=== PATIENT | male | born 1965 | race Caucasian/White ===

== ENCOUNTER 2016-09-20 02:23 | Observation (INO) | payer SELFPAY ==
[~2016-09-20] VITALS: Ht 177.8 cm; Wt 77.0 kg
[~2016-09-20 02:23] MED LIST: INSU100V2 SQ; RANI300T PO
[2016-09-20 02:26] VITALS: BP 135/85; PULSE 89; RESP 18; TEMP 98.9; O2SAT 95
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
[2016-09-20 04:37] LABS: AUTOMATED NEUTROPHIL # 3.2 TH/MM3 (1.8-7.7); BASOPHIL % 0.4 % (0.0-2.0); EOSINOPHIL # 0.3 TH/MM3 (0-0.4); EOSINOPHIL % 4.8 % (0.0-4.0); HEMATOCRIT 39.1 % (39.0-51.0); HEMO FLAGS DIFF FINAL; LYMPH % 36.3 % (9.0-44.0); LYMPHOCYTE # 2.2 TH/MM3 (1.0-4.8); MEAN CELL VOLUME 88.3 FL (80.0-100.0); MEAN CORPUSCULAR HEMOGLOBIN 29.4 PG (27.0-34.0); MEAN CORPUSCULAR HGB CONC 33.3 % (32.0-36.0); MONO % 5.6 % (0.0-8.0); NEUT % 52.9 % (16.0-70.0); PLATELET COUNT 227 TH/MM3 (150-450); RED BLOOD COUNT 4.43 MIL/MM3 (4.50-5.90); RED CELL DISTRIBUTION WIDTH 13.6 % (11.6-17.2); WHITE BLOOD COUNT 6.1 TH/MM3 (4.0-11.0)
[2016-09-20 05:02] LABS: BICARBONATE 28.7 MEQ/L (21.0-32.0); MAGNESIUM 2.1 MG/DL (1.5-2.5); POTASSIUM 3.9 MEQ/L (3.5-5.1)
[2016-09-20] MEDS ORDERED: KETOROLAC TROMETHAMINE 30 MG/ML (IVP) VIAL IV PUSH ONE (05:15)
[2016-09-20 06:07] LABS: BLOOD, URINE NEG (NEG); COMMENT (UR) CULT NOT INDICATED; CULTURE IF INDICATED CULT NOT INDICATED; GLUCOSE,URINE NEG (NEG); KETONE, URINE NEG (NEG); MUCUS URINE FEW /lpf (OCC); NITRITE,URINE NEG (NEG); SQUAMOUS EPITHELIAL CELL URINE <1 /hpf (0-5); URINE COLOR YELLOW (YELLW/STRAW)
--- NOTE | 2016-09-20 06:50 | RADRPT ---
EXAM DATE/TIME: 09/20/2016 06:08 [facility] COMPARISON: CT ABDOMEN & PELVIS W/O CONTRAST, August 31, 2013, 4:56. CT ABDOMEN & PELVIS W/O CONTRAST, September 02, 2014 , 7:53. INDICATIONS : Bilateral flank pain. ORAL CONTRAST: No oral contrast ingested. RADIATION DOSE: 6.93 CTDIvol (mGy) MEDICAL HISTORY : Hypertension. Diabetes. SURGICAL HISTORY : None. ENCOUNTER: Initial ACUITY: 1 week PAIN SCALE: 8/10 LOCATION: Bilateral flank TECHNIQUE: Volumetric scanning of the abdomen and pelvis was performed. Using automated exposure control and ad justment of the mA and/or kV according to patient size, radiation dose was kept as low as reasonably achievable to obtain optimal diagnostic quality images. FINDINGS: LOWER LUNGS: There is a 1 cm nodule at the anterolateral right lung base. LIVER: Homogeneous density without lesion. There is no dilation of the biliary tree. Tiny stone in a contra cted gallbladder.. SPLEEN: Moderately enlarged. PANCREAS: Within normal limits. KIDNEYS: Multiple bilateral nonobstructing kidney stones, largest a 5 mm stone in the anterior midpole collect ing system of the right kidney. No definite ureteral stones, however multiple deep pelvic calcificati ons of varying sizes, felt to be phleboliths. ADRENAL GLANDS: Within normal limits. VASCULAR: There is no aortic aneurysm. BOWEL/MESENTERY: The stomach, small bowel, and colon demonstrate no acute abnormality. Minimal perihepatic fluid. Nodu lar appearance of the mesentery in the right abdomen concerning for carcinomatosis. ABDOMINAL WALL: Within normal limits. RETROPERITONEUM: Enlarged lymph nodes at multiple sites including gastrohepatic ligament, hepatic hilum, portal caval and para-aortic regions. BLADDER: No wall thickening or mass. REPRODUCTIVE: Within normal limits. INGUINAL: There is no lymphadenopathy or hernia. MUSCULOSKELETAL: Within normal limits for patient age. CONCLUSION: Bilateral mild obstructing kidney stones. No definite ureteral stone or hydronephrosis. Splenomegaly with multicompartment lymphadenopathy. Appearance worrisome for chronic leukemia. Small right lung base nodule. Alverto Whitfield MD on September 20, 2016 at 6:36 Board Certified Radiologist. This report was verified electronically.
[2016-09-20 07:02] VITALS: BP 106/61; PULSE 74; RESP 20; O2SAT 97
[2016-09-20] MEDS ORDERED: MORPHINE SULFATE 4 MG/ML INJ IV PUSH ONE (08:15)
[2016-09-20] MEDS ORDERED: ONDANSETRON HCL 4 MG/2 ML VIAL IV PUSH ONE (08:15)
[2016-09-20] MEDS: SODIUM CHLOR 0.9% 1000 ML INJ 1,000 ML IV SCH ×3 (08:41→21:56)
[2016-09-20 08:46] LABS: INDIRECT BILIRUBIN 0.4 MG/DL (0.0-0.8); TOTAL BILIRUBIN ADULT 0.6 MG/DL (0.2-1.0)
--- NOTE | 2016-09-20 09:17 | RADRPT ---
EXAM DATE/TIME: 09/20/2016 08:15 [facility] COMPARISON: No previous studies available for comparison. INDICATIONS : Bilateral leg swelling. MEDICAL HISTORY : Hypertension. Carcinoma, pancreas. Diabetes. Seizures. Anxiety. SURGICAL HISTORY : Tonsillectomy. Left eye plastic surgery. ENCOUNTER: Initial ACUITY: 2 months PAIN SCORE: 2/10 LOCATION: Bilateral Legs. TECHNIQUE: Venous ultrasound of the left and right leg was performed from the inguinal ligament to the proximal calf. Real-time, color Doppler and spectral tracing, compression and augmentation techniques were us ed. FINDINGS: RIGHT LEG: There is normal compressibility of the deep venous system from the inguinal region to the proximal ca lf. No echogenic clot is seen in the lumen of the common femoral, femoral, popliteal, and posterior tibial veins. There is a normal response of the venous system to proximal and distal augmentation an d respiration. LEFT LEG: There is normal compressibility of the deep venous system from the inguinal region to the proximal ca lf. No echogenic clot is seen in the lumen of the common femoral, femoral, popliteal, and posterior tibial veins. There is a normal response of the venous system to proximal and distal augmentation an d respiration. CONCLUSION: No evidence of lower extremity DVT on the right or left. Jim Suarez MD on September 20, 2016 at 9:12 Board Certified Radiologist. This report was verified electronically.
--- NOTE | 2016-09-20 09:36 | PD ---
Physical Exam Date Seen by Provider: Sep 20, 2016 Data Data Last Documented VS Vital Signs Date Time Temp Pulse Resp B/P Pulse Ox O2 Delivery O2 Flow Rate FiO2 09/20/16 08:39 14 09/20/16 07:02 74 106/61 97 Room Air 09/20/16 02:26 98.9 Orders Complete Blood Count With Diff (09/20/16 04:03) Basic Metabolic Panel (Bmp) (09/20/16 04:03) Magnesium (Mg) (09/20/16 04:03) Urinalysis - C+S If Indicated (09/20/16 04:03) B-Type Natriuretic Peptide (09/20/16 04:03) Alcohol (Ethanol) (09/20/16 04:03) Ketorolac Inj (Toradol Inj) (09/20/16 05:15) Ct Abd/Pel W/O Iv Contrast (09/20/16 ) Us Leg Venous Doppler Bilat (09/20/16 ) Hepatic Functional Panel (09/20/16 07:14) Morphine Inj (Morphine Inj) (09/20/16 08:15) Sodium Chlor 0.9% 1000 Ml Inj (Ns 1000 M (09/20/16 08:15) Ondansetron Inj (Zofran Inj) (09/20/16 08:15) Labs Laboratory Tests Test 09/20/16 09/20/16 04:20 05:50 White Blood Count 6.1 TH/MM3 Red Blood Count 4.43 MIL/MM3 Hemoglobin 13.0 GM/DL Hematocrit 39.1 % Mean Corpuscular Volume 88.3 FL Mean Corpuscular Hemoglobin 29.4 PG Mean Corpuscular Hemoglobin 33.3 % Concent Red Cell Distribution Width 13.6 % Platelet Count 227 TH/MM3 Mean Platelet Volume 7.8 FL Neutrophils (%) (Auto) 52.9 % Lymphocytes (%) (Auto) 36.3 % Monocytes (%) (Auto) 5.6 % Eosinophils (%) (Auto) 4.8 % Basophils (%) (Auto) 0.4 % Neutrophils # (Auto) 3.2 TH/MM3 Lymphocytes # (Auto) 2.2 TH/MM3 Monocytes # (Auto) 0.3 TH/MM3 Eosinophils # (Auto) 0.3 TH/MM3 Basophils # (Auto) 0.0 TH/MM3 CBC Comment DIFF FINAL Differential Comment Sodium Level 139 MEQ/L Potassium Level 3.9 MEQ/L Chloride Level 103 MEQ/L Carbon Dioxide Level 28.7 MEQ/L Anion Gap 7 MEQ/L Blood Urea Nitrogen 9 MG/DL Creatinine 0.90 MG/DL Estimat Glomerular Filtration 88 ML/MIN Rate Random Glucose 104 MG/DL Calcium Level 8.7 MG/DL Magnesium Level 2.1 MG/DL Total Bilirubin 0.6 MG/DL Direct Bilirubin 0.2 MG/DL Indirect Bilirubin 0.4 MG/DL Aspartate Amino Transf 96 U/L (AST/SGOT) Alanine Aminotransferase 69 U/L (ALT/SGPT) Alkaline Phosphatase 105 U/L B-Type Natriuretic Peptide 11 PG/ML Total Protein 7.6 GM/DL Albumin 2.7 GM/DL Ethyl Alcohol Level 3 MG/DL Urine Color YELLOW Urine Turbidity CLEAR Urine pH 6.0 Urine Specific [place] 1.018 Urine Protein TRACE mg/dL Urine Glucose (UA) NEG mg/dL Urine Ketones NEG mg/dL Urine Occult Blood NEG Urine Nitrite NEG Urine Bilirubin NEG Urine Urobilinogen 4.0 MG/DL Urine Leukocyte Esterase NEG Urine RBC 1 /hpf Urine WBC 1 /hpf Urine Squamous Epithelial <1 /hpf Cells Urine Mucus FEW /lpf Microscopic Urinalysis Comment CULT NOT INDICATED MDM Medical Record Reviewed: Yes Supervised Visit with JOSE: No Narrative Course patient signed out to be my dr. deshpande, patient pending us of legs and dispo Patient is a 51-year-old male who presents to emergency room with complaints of 3 days of lower leg pain and pedal edema as well as low back pain. Patient had workup which included a CT of the abdomen and pelvis without contrast. It appears that there is concerns for chronic leukemia as there is carcinamotsis in his abdomen. Patient is homeless, is unable to obtain medical treatment and workup for his newly diagnosed possible leukemia. Case is reviewed with case management, plan to this patient overnight as he will require IV fluids and pain medications and consult with oncology. case reviewed with [facility] residents, will obs to Dr. Monterroso Diagnosis Primary Impression: Generalized weakness Additional Impressions: Abnormal CT of liver Pedal edema Admitting Information Admitting Physician Requests: Observation Scripts No Active Prescriptions or Reported Meds Ely Enciso DO Sep 20, 2016 09:36
[2016-09-20] MEDS ORDERED: SODIUM CHLORIDE 0.9% FLUSH 10 ML FLUSH IV FLUSH PRN (10:30)
[2016-09-20] MEDS ORDERED: ONDANSETRON HCL 4 MG/2 ML VIAL IVP PRN (10:30)
[2016-09-20] MEDS ORDERED: NALOXONE HCL 0.4 MG/ML AMP IV PRN (10:30)
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
[2016-09-20] MEDS ORDERED: GLUCAGON 1 MG/ML VIAL OTHER PRN (10:45)
[2016-09-20] MEDS ORDERED: DEXTROSE 50% IN WATER 50 ML VIAL(D50) IV PUSH PRN (10:45)
--- NOTE | 2016-09-20 10:50 | RADRPT ---
EXAM DATE/TIME: 09/20/2016 10:51 [facility] COMPARISON: CHEST SINGLE AP, July 03, 2015, 9:27. INDICATIONS : Difficulty breathing for a few months. Pulmonary nodule per order. MEDICAL HISTORY : Hypertension. Carcinoma, pancreas. Diabetes. Seizures. Anxiety. SURGICAL HISTORY : Tonsillectomy. Left eye plastic surgery. ENCOUNTER: Initial ACUITY: 2 months PAIN SCORE: 0/10 LOCATION: Bilateral chest FINDINGS: Frontal and lateral views of the chest demonstrate a normal-sized cardiac silhouette. There is inters titial prominence bilaterally. No pleural effusion, airspace consolidation, or pneumothorax is identi fied. No pulmonary nodule is visualized. The bones and soft tissues demonstrate no acute finding. The re is an old healed right posterior third rib fracture. CONCLUSION: Chronic interstitial prominence. No acute cardiopulmonary abnormality is identified. Alverto Mejía MD on September 20, 2016 at 10:46 Board Certified Radiologist. This report was verified electronically.
[2016-09-20 11:56] VITALS: BP 106/70
[2016-09-20] MEDS ORDERED: LORazepam 2 MG/ML VIAL IV PRN (12:15)
[2016-09-20] MEDS: ACETAMINOPHEN 325 MG TAB PO PRN ×2 (12:47→20:34)
[2016-09-20] MEDS: TAMSULOSIN HCL 0.4 MG CAP PO SCH (12:47)
[2016-09-20] MEDS: SODIUM CHLORIDE 0.9% FLUSH 10 ML FLUSH IV FLUSH SCH ×2 (12:49→20:36)
[2016-09-20] MEDS: INSULIN ASPART SUPPLEMENTAL SCALE SQ SCH ×3 (12:49→20:15)
[2016-09-20] MEDS ORDERED: HEPARIN SODIUM - SQ 10,000 UNITS/ML VIAL SQ ONE (13:00)
[2016-09-20 15:07] LABS: AMPHETAMINE, URINE NEG (NEG); BARBITURATES, URINE NEG (NEG); COCAINE, URINE POS (NEG)
[2016-09-20 16:00] VITALS: BP 103/72; PULSE 62; RESP 18; TEMP 96; O2SAT 93
[2016-09-20 20:09] VITALS: BP 111/76; PULSE 74; RESP 18; TEMP 97.7; O2SAT 80
[2016-09-21 00:03] VITALS: BP 102/69; PULSE 97; RESP 18; TEMP 98; O2SAT 94
[2016-09-21 04:00] VITALS: BP 119/69; PULSE 66; RESP 18; TEMP 98; O2SAT 93
[2016-09-21] MEDS: INSULIN ASPART SUPPLEMENTAL SCALE SQ SCH ×2 (06:08→11:00)
[2016-09-21 06:56] LABS: AUTOMATED NEUTROPHIL # 2.2 TH/MM3 (1.8-7.7); BASOPHIL % 0.4 % (0.0-2.0); EOSINOPHIL # 0.3 TH/MM3 (0-0.4); EOSINOPHIL % 5.8 % (0.0-4.0); HEMATOCRIT 40.4 % (39.0-51.0); HEMO FLAGS DIFF FINAL; LYMPH % 42.7 % (9.0-44.0); LYMPHOCYTE # 2.1 TH/MM3 (1.0-4.8); MEAN CORPUSCULAR HGB CONC 32.6 % (32.0-36.0); MONO % 5.7 % (0.0-8.0); NEUT % 45.4 % (16.0-70.0); PLATELET COUNT 209 TH/MM3 (150-450); RED BLOOD COUNT 4.54 MIL/MM3 (4.50-5.90); RED CELL DISTRIBUTION WIDTH 13.7 % (11.6-17.2); WHITE BLOOD COUNT 4.9 TH/MM3 (4.0-11.0)
[2016-09-21 07:34] LABS: ANION GAP 6 MEQ/L (5-15); AST (GOT) 114 U/L (15-37); BICARBONATE 28.4 MEQ/L (21.0-32.0); BLOOD UREA NITROGEN 11 MG/DL (7-18); CHLORIDE 104 MEQ/L (98-107); GLOMERULAR FILTRATION RATE 91 ML/MIN (>89); POTASSIUM 4.3 MEQ/L (3.5-5.1); SODIUM (NA) 138 MEQ/L (136-145)
[2016-09-21 07:35] LABS: ALT (GPT) 72 U/L (12-78)
[2016-09-21 07:38] LABS: ALKALINE PHOSPHATASE 105 U/L (45-117); TOTAL BILIRUBIN ADULT 0.4 MG/DL (0.2-1.0)
[2016-09-21 07:46] VITALS: BP 110/68; PULSE 80; RESP 18; TEMP 98.6; O2SAT 96
[2016-09-21] MEDS: TAMSULOSIN HCL 0.4 MG CAP PO SCH (08:56)
[2016-09-21] MEDS: SODIUM CHLORIDE 0.9% FLUSH 10 ML FLUSH IV FLUSH SCH (08:57)
[2016-09-21] MEDS: ACETAMINOPHEN 325 MG TAB PO PRN (08:57)
[2016-09-21] MEDS: SODIUM CHLOR 0.9% 1000 ML INJ 1,000 ML IV SCH (09:57)
[2016-09-21 11:03] LABS: RHEUMATOID FACTOR TRIGGER LESS THAN 10.0 IU/ML (0.0-14.9)
--- NOTE | 2016-09-21 11:43 | MB ---
cc: [facility]INTER DATE OF CONSULTATION: DATE OF : 1965 REASON FOR CONSULTATION: Patient with abnormal findings of abdominal lymphadenopathy and splenomegaly. CHIEF COMPLAINT Abdominal pain lower extremity edema, lower back pain. HISTORY OF PRESENT ILLNESS This is a 51-year-old male who was who has a past medical history of renal calculi and history of Zygomatica maxillary complex, fracture as well as orbital floor blowout several years ago who underwent open reduction and internal fixation. The patient is currently homeless. He has not had a primary care physician followup for many years. He does not have any other reported medical problems. The patient admits to substance abuse and he is actively using cocaine. He presented to the emergency department after he developed lower extremity edema, lower back pain and abdominal pain which is progressively worse over the past 3-4 days. He endorses weight loss over the past month. He also has urinary hesitancy. He has a history of kidney stones. The patient has a history of hepatitis C on admission an abdominal CT scan was obtained. This shows a enlarged lymph node at multiple sites involving the gastrohepatic ligament, hepatic hilum oral cable and para-aortic lesions. His spleen is moderately enlarged but is definitively not at the higher end of enlargement. The patient also had lower extremity ultrasound on admission and there is no evidence of DVT in bilateral lower extremities. The chest x-ray shows chronic interstitial prominence without any acute cardiopulmonary abnormality. LABORATORY FINDINGS: On admission his WBC was 6.1, hemoglobin 13, platelet count 227. Serum chemistries show a sodium of 139, potassium 3.9, chloride 103 and CO2 is 28.7. His total bilirubin is 0.6, AST 96 and ALT 69. The patient does not admitted to drinking alcohol. REVIEW OF SYSTEMS Comprehensive 14-point review of systems was completed which is negative except as described in the HPI. PAST MEDICAL HISTORY History of renal calculi. ? Bipolar disorder History of seizures history of depression polysubstance abuse. PAST SURGICAL HISTORY He has had facial surgery involving the zygomaxillary region. also had a orbital floor blowout. He has had left eye surgery. OUTPATIENT MEDICATIONS None. ALLERGIES PENICILLIN FAMILY HISTORY: Family history was reviewed and noncontributory to this admission. SOCIAL HISTORY This is admitted to smoking two packs per day for 30 years. He states that except to cigarettes per day. He denies any alcohol consumption. He admits to snorting cocaine. He also has been incarcerated in the past. PHYSICAL EXAMINATION VITAL SIGNS: blood pressure is 111/76, pulse is 70's, temperature is 97.7, O2 sats are 94% on room air. IN GENERAL: Thin cachectic appears to have skin damage from chronic sun exposure. HEAD, EYES, EARS, NOSE, AND THROAT: The pupils are equal, round, reactive to light. EOMI. No thrush. No oral lesions. NECK: Neck is supple. CHEST: The chest is clear to auscultation bilaterally. CARDIOVASCULAR SYSTEM: S1-S2 regular rate and rhythm. ABDOMEN: The Abdomen is diffusely tender. No rebound or guarding was not able to appreciate hepatosplenomegaly. EXTREMITIES: Mildly edematous with pulse is bilateral lower extremities. NEUROLOGIC: No focal deficits. PSYCHIATRIC: Mood and affect is appropriate. LYMPHATICS: Lymph node examination did not show any lymphadenopathy. LABORATORY DATA WBC 6.1, hemoglobin 13, platelet count 227, AST 96, ALT 69, albumin is 2.7, creatinine is 0.9. IMAGING STUDIES Was reviewed in the EMR ASSESSMENT/PLAN This is a 51-year-old homeless male with a history of polysubstance abuse who is actively consuming cocaine. Has history of psychiatric issues, renal calculi who presented to the emergency department with acute bilateral lower extremity edema. Back pain and abdominal pain and was found to have abnormal Ct of the abdomen. 1. Nonspecific findings of abdominal lymphadenopathy and moderate splenomegaly. These findings are nonspecific and could be secondary to infectious versus reactive lymphadenopathy due to inflammation. There is also a possibility of lymphoma vs lymphoproliferative or myeloproliferative disorder. However, this patient needs to be worked up for other causes first. He does not have any cytopenias. Infection such as HIV can cause lymphadenopathy. He has a history of hepatitis C. I would recommend obtaining HIV testing and hepatitis profile. Check Hep C viral load. We will check LDH. I would recommend obtaining a CT scan of the chest to evaluate for any additional lymphadenopathy. He can be monitored over time for progression of his lymphadenopathy. I would not recommend obtaining a biopsy at this time 2. History of cocaine abuse and polysubstance abuse. 3. Elevated liver enzymes possibility of underlying alcohol abuse/hx of Hep C. He does have some splenomegaly. The patient states that does not drink alcohol. Thank you for allowing me to participate in the care of this patient. I will continue to follow this patient along. MD KENNETH Howell/nicholas /6:03 AM /10:15 AM DAVID
[2016-09-21 11:50] VITALS: BP 136/83; PULSE 68; RESP 18; TEMP 97.7; O2SAT 96
--- NOTE | 2016-09-21 12:20 | PD.ONC.PN ---
Subjective Subjective Remarks Afebrile overnight. "I'm hungry, when can I eat?" Denies pain. Objective Data Date Time Temp Pulse Resp B/P Pulse Ox O2 Delivery O2 Flow Rate FiO2 09/21/16 11:50 97.7 68 18 136/83 96 09/21/16 07:46 98.6 80 18 110/68 96 09/21/16 04:00 98.0 66 18 119/69 93 09/21/16 00:03 98.0 97 18 102/69 94 09/20/16 20:09 97.7 74 18 111/76 80 09/20/16 16:00 96.0 62 18 103/72 93 Result Diagram: 09/21/16 0615 09/21/1615 Laboratory Results Laboratory Tests Test 09/21/16 09/21/16 06:15 10:16 White Blood Count 4.9 TH/MM3 Red Blood Count 4.54 MIL/MM3 Hemoglobin 13.2 GM/DL Hematocrit 40.4 % Mean Corpuscular Volume 89.0 FL Mean Corpuscular Hemoglobin 29.0 PG Mean Corpuscular Hemoglobin 32.6 % Concent Red Cell Distribution Width 13.7 % Platelet Count 209 TH/MM3 Mean Platelet Volume 8.1 FL Neutrophils (%) (Auto) 45.4 % Lymphocytes (%) (Auto) 42.7 % Monocytes (%) (Auto) 5.7 % Eosinophils (%) (Auto) 5.8 % Basophils (%) (Auto) 0.4 % Neutrophils # (Auto) 2.2 TH/MM3 Lymphocytes # (Auto) 2.1 TH/MM3 Monocytes # (Auto) 0.3 TH/MM3 Eosinophils # (Auto) 0.3 TH/MM3 Basophils # (Auto) 0.0 TH/MM3 CBC Comment DIFF FINAL Differential Comment Sodium Level 138 MEQ/L Potassium Level 4.3 MEQ/L Chloride Level 104 MEQ/L Carbon Dioxide Level 28.4 MEQ/L Anion Gap 6 MEQ/L Blood Urea Nitrogen 11 MG/DL Creatinine 0.88 MG/DL Estimat Glomerular Filtration 91 ML/MIN Rate Random Glucose 83 MG/DL Calcium Level 8.3 MG/DL Total Bilirubin 0.4 MG/DL Aspartate Amino Transf 114 U/L (AST/SGOT) Alanine Aminotransferase 72 U/L (ALT/SGPT) Alkaline Phosphatase 105 U/L Total Protein 7.0 GM/DL Albumin 2.4 GM/DL Erythrocyte Sedimentation Rate 40 mm/hr Lactate Dehydrogenase 152 U/L C-Reactive Protein 0.70 MG/DL Rheumatoid Factor Screen NEGATIVE Rheumatoid Factor Titer IU/ML Administered Medications Medications (Trade) Dose Ordered Sig/Anitha Route PRN Reason Start Time Stop Time Status Last Admin Dose Admin Sodium Chloride (NS 1000 ml Inj) 1,000 ml @ 115 mls/hr [id number] IV 09/20/16 08:15 09/20/16 21:56 Sodium Chloride (NS Flush) 2 ml BID IV FLUSH 09/20/16 10:30 09/20/16 12:49 Acetaminophen (Tylenol) 650 mg Q6H PRN PO TEMP > 101; pain 1-10 09/20/16 10:30 09/21/16 08:57 Tamsulosin HCl (Flomax) 0.4 mg DAILY PO 09/20/16 11:45 09/21/16 08:56 Objective Remarks GENERAL: Middle aged male, lying supine in bed. appears comfortable. SKIN: Warm and dry. HEAD: Normocephalic. EYES: No injection or drainage. NECK: Supple, trachea midline. CARDIOVASCULAR: Regular rate and rhythm RESPIRATORY: Breath sounds equal bilaterally. No accessory muscle use. GASTROINTESTINAL: Abdomen soft, non-tender, nondistended. EXTREMITIES: No cyanosis NEUROLOGICAL: No obvious focal deficit. Awake, alert, and oriented x3. Assessment/Plan Problem List: (1) Lymphadenopathy, abdominal Status: Acute Plan: --Nonspecific findings of abdominal lymphadenopathy and moderate splenomegaly. --differential includes infectious versus reactive lymphadenopathy vs possibility of lymphoma, myeloproliferative disorder. -- HIV and hepatitis profile + hepatitis C --CRP and ESR both elevated --would recommend CT chest to evaluate for any additional lymphadenopathy. will then need serially monitoring over time for progression of his lymphadenopathy. --would not recommend obtaining a biopsy at this time until we have ruled out the other causes of LAD Assessment 51y/o male with abnormal findings of abdominal lymphadenopathy and splenomegaly. Admitted with LE edema, LBP and abdominal pain history of renal calculi and history of Zygomatica maxillary complex, fracture as well as orbital floor blowout several years ago who underwent open reduction and internal fixation. +substance abuse and he is actively using cocaine. h/o hepatitis C Plan 1. await workup 2. recommend CT Chest 3. supportive care Attending Statement The exam, history, and the medical decision-making described in the above note were completed with the assistance of the mid-level provider. I reviewed and agree with the findings presented. I attest that I had a [id number] encounter with the patient on the same day, and personally performed and documented my assessment and findings in the medical record. Inflammatory markers elevated. ESR and CRP Obtain Chest CT to assess for Lymphadenopathy Hep C antibody positive. Check Hep C Viral Load additional inflammatory/autoimmune w/u per primary team Lakeisha Galindo Sep 21, 2016 12:20 Kale Olson MD Sep 21, 2016 22:17
--- NOTE | 2016-09-21 14:00 | HHI.FPPN ---
Subjective Remarks No acute events overnight. Afebrile. Vitals stable. Patients complains this morning of wanting a diet. Denies fevers, CP, SOB, abdominal pain. (Chapo Wilson MD R1) Objective Vitals Vital Signs Date Time Temp Pulse Resp B/P Pulse Ox O2 Delivery O2 Flow Rate FiO2 09/21/16 11:50 97.7 68 18 136/83 96 09/21/16 07:46 98.6 80 18 110/68 96 09/21/16 04:00 98.0 66 18 119/69 93 09/21/16 00:03 98.0 97 18 102/69 94 09/20/16 20:09 97.7 74 18 111/76 80 09/20/16 16:00 96.0 62 18 103/72 93 I/O 09/20/16 09/20/16 09/20/16 09/21/16 09/21/16 09/21/16 07:00 15:00 23:00 07:00 15:00 23:00 Intake Total 610 ml Output Total 300 ml 950 ml 750 ml Balance 310 ml -950 ml -750 ml Intake Oral 360 ml IV Total 250 ml Output Urine Total 300 ml 950 ml 750 ml # Voids 3 2 # Bowel Movements 0 (Chapo Wilson MD R1) Result Diagram: 09/21/16 0615 09/21/16 0615 Objective Remarks GENERAL: NAD, resting comfortably in bed NEURO: AOx3. Normal speech. webbing tacker grossly intact. Motor grossly normal. SKIN: Warm and dry. No rashes or erythema. HEAD: Normocephalic. Atraumatic. EYES: EOMI. No scleral icterus. ENT: No nasal drainage. Moist mucous membranes. NECK: Supple, trachea midline. CARDIOVASCULAR: Regular rate and rhythm without murmurs, rubs, or gallops. Peripheral pulses 2+. RESPIRATORY: Breath sounds clear to auscultation and equal bilaterally, without wheezes, rales, or rhonchi. No accessory muscle use. GASTROINTESTINAL: Abdomen soft, nontender throughout, nondistended, normal BS. No organomegaly or masses appreciated. No rebound tenderness. No guarding. MUSCULOSKELETAL: Normal range of motion. 2+ lower extremity edema up to distal tibia bilaterally. Pedal edema improved from yesterday. PT and DP pulses are 2+ bilaterally. BACK: Nontender without obvious deformity. (Chapo Wilson MD R1) A/P Assessment and Plan Pleasant 51 year old homeless presents with pedal edema and low back pain and found to have findings concerning for chronic leukemia on CT abd/pelvis as well as bilateral mild nonobstructing kidney stones. Discharge Planning Stable for discharge follow CT chest. CM assisting with discharge needs as pt is homeless and needing outpatient f/u with oncology. (Chapo Wilson MD R1) Attending Attestation Patient seen, examined, and discussed with resident team. I agree with assessment and management as documented and discussed with me. Pt denies complaints. He feels hungry. He would like to go home. (Francesca Monterroso MD) Problem List: (1) Abnormal CT of the abdomen Status: Acute Plan: - CT abdomen/pelvis showing bilateral mild nonobstructing kidney stones. No definite ureteral stone or hydronephrosis. Splenomegaly with multi compartment lymphadenopathy. Findings worrisome for chronic leukemia. Small right lung base nodule. - CBC remains within normal limits - Oncology consulted - Recommending CT chest to evaluate for additional lymphadenopathy and pt will need serial monitoring over time to evaluate for progression of lymphadenopathy - Unclear etiology at this time, findings are nonspecific - No biopsy at this time until other causes of LAD are r/o - CM consult; pt is homeless may need assistance for outpatient follow up (2) Bilateral kidney stones Status: Acute Plan: - CT abdomen/pelvis findings of bilateral mild obstructing kidney stones , no definite ureteral stone or hydronephrosis - UA unremarkable - IVF hydration with NS at 115 cc/hr - Flomax 0.4 mg po daily, hold if SBP < 100 or DBP < 60 - Stain urine for calculi (3) Orthopnea Status: Acute Plan: Pt endorses orthopnea; does state about every other night he is able to sleep flat without any issues BNP 11 on admission Continue monitor Consider echocardiogram if pt clinically worsens Last echo in EMR 07/2004 showing EF 55-65% (4) DM (diabetes mellitus) Status: Chronic Plan: Accuchecks ACHS Low-dose ISS (5) Hypertension Status: Chronic Plan: BP WNLs on admission Monitor vitals q4h (6) History of seizure Status: Chronic Plan: Seizure precautions Ativan 2mg IV q10m prn seizures (7) History of substance abuse Status: Chronic Plan: Admits to snorting cocaine recently UDS + for cocaine Denies IV drug use Etoh level 3 (8) Nutrition, metabolism, and development symptoms Status: Acute Plan: Fluids: NS at 115 cc/hr Electrolytes: WNLs, continue to monitor and replete as necessary Nutrition: 1800 ADA DVT ppx: b/l SCDs, add chemical anticoagulation if anticipating longer hospital stay (Chapo Wilson MD R1) Chapo Wilson MD R1 Sep 21, 2016 14:00 Francesca Monterroso MD Sep 21, 2016 17:28
[2016-09-21 15:36] VITALS: BP 138/75; PULSE 83; RESP 20; TEMP 98.1; O2SAT 96
[2016-09-21] MEDS ORDERED: IOHEXOL 350 MG/ML 10 ML VIAL (for RAD DIAG) IV ONE (15:54)
--- NOTE | 2016-09-21 16:29 | HHI.FPPN ---
Addendum to progress note ADDENDUM Reason for addendum: Additonal documentation Additional information The patient decided to leave AMA. The patient was advised to remain hospitalized for further evaluation of his ongoing medical issues. Case management was consulted as the patient is homeless with the attempt to provide him reliable outpatient follow up with the appropriate physicians and it was explained to the patient that he may be able to follow up at the clinic here however the patient reportedly declined to discuss this further. The ED financial counselor was contacted for further assistance financially. The patient was aware of the risks he is placing himself at by leaving AMA. Chapo Wilson MD R1 Sep 21, 2016 16:29
--- NOTE | 2016-09-21 17:06 | RADRPT ---
EXAM DATE/TIME: 09/21/2016 15:45 [facility] COMPARISON: CT ABDOMEN & PELVIS W/O CONTRAST, September 20, 2016, 6:08. INDICATIONS : Evaluate for mass. IV CONTRAST: 70 cc Omnipaque 350 (iohexol) IV RADIATION DOSE: 5.22 CTDIvol (mGy) MEDICAL HISTORY : Seizures. Hypertension. Diabetes mellitus type 2.Pancreastic cancer. SURGICAL HISTORY : None. ENCOUNTER: Initial ACUITY: 1 day PAIN SCALE: 2/10 LOCATION: Bilateral chest TECHNIQUE: Volumetric scanning of the chest was performed. Using automated exposure control and adjustment of t he mA and/or kV according to patient size, radiation dose was kept as low as reasonably achievable to obtain optimal diagnostic quality images. FINDINGS: LUNGS: 8mm nodular density in the inferior right middle lobe abutting the hemidiaphragm on image #46. Mild p osterior bilateral lower lobe atelectasis. PLEURA: There is no pleural thickening or pleural effusion. MEDIASTINUM: Coronary artery calcifications. No enlarged lymph nodes. Thoracic aorta within normal limits. AXILLAE: Within normal limits. No lymphadenopathy. SKELETAL: Within normal limits for patient age. MISCELLANEOUS: Small amount of right upper quadrant ascites. CONCLUSION: 1. 8mm nodular density in the inferior right lower lobe. Too small to characterize and too small to b iopsy. Recommend followup noncontrast chest CT in 6 months. 2. Mild bilateral atelectasis. Jim Suarez MD on September 21, 2016 at 16:57 Board Certified Radiologist. This report was verified electronically.
[2016-09-24 13:49] LABS: ANA SCREEN POS (NEG)
== END 2016-09-21 16:26 | disposition left against medical advice (07) ==
LOC: NEPC 02:23 → NEDA 10:02 → NEPFCDU 12:04
PROVIDERS: ADMIT Family Medicine; ATTEND Family Medicine
DX: R53.1 Weakness (principal); R93.2 Abnormal findings on diagnostic imaging of liver and biliary tract; R74.8 Abnormal levels of other serum enzymes; R60.0 Localized edema; R59.1 Generalized enlarged lymph nodes; I10 Essential (primary) hypertension; E11.9 Type 2 diabetes mellitus without complications; M54.5 Low back pain; B19.20 Unspecified viral hepatitis C without hepatic coma; R56.9 Unspecified convulsions; F14.10 Cocaine abuse, uncomplicated; F17.210 Nicotine dependence, cigarettes, uncomplicated; Z87.442 Personal history of urinary calculi; Z59.0 Homelessness
CPT/HCPCS: 71020; 71260; 74176; 80048; 80053; 80076; 80307; 81001; 83615; 83735; 83880; 85025; 85652; 86038; 86039; 86140; 86430; 86703; 86705; 86803; 87340; 93970; 96361; 96374; 96375; 97161; 99285; G0378; G8987; G8988; J1644; J1885; J2270; J2405; J7030; Q9967

== ENCOUNTER 2016-09-25 09:55 | Observation (INO) | payer SELFPAY ==
[~2016-09-25] VITALS: Ht 175.3 cm; Wt 75.0 kg
[2016-09-25 09:58] VITALS: BP 137/82; PULSE 86; RESP 15; TEMP 98.2; O2SAT 98
[2016-09-25] MEDS: REMOVE OLD PATCH T-DERMAL SCH (10:17)
[2016-09-25] MEDS ORDERED: MORPHINE SULFATE 4 MG/ML INJ IV PUSH ONE (10:30)
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
[2016-09-25 10:37] LABS: AUTOMATED NEUTROPHIL # 3.6 TH/MM3 (1.8-7.7); BASOPHIL % 0.7 % (0.0-2.0); EOSINOPHIL # 0.3 TH/MM3 (0-0.4); EOSINOPHIL % 4.9 % (0.0-4.0); HEMATOCRIT 39.6 % (39.0-51.0); HEMO FLAGS DIFF FINAL; LYMPHOCYTE # 2.5 TH/MM3 (1.0-4.8); MEAN CELL VOLUME 87.2 FL (80.0-100.0); MEAN CORPUSCULAR HEMOGLOBIN 29.7 PG (27.0-34.0); MEAN CORPUSCULAR HGB CONC 34.1 % (32.0-36.0); NEUT % 50.4 % (16.0-70.0); PLATELET COUNT 242 TH/MM3 (150-450); RED BLOOD COUNT 4.55 MIL/MM3 (4.50-5.90); RED CELL DISTRIBUTION WIDTH 13.6 % (11.6-17.2); WHITE BLOOD COUNT 7.1 TH/MM3 (4.0-11.0)
[2016-09-25 10:46] LABS: PROTHROMBIN TIME - PATIENT 10.9 SEC (9.8-11.6)
[2016-09-25 10:55] LABS: ALT (GPT) 72 U/L (12-78); ANION GAP 8 MEQ/L (5-15); AST (GOT) 91 U/L (15-37); BICARBONATE 26.7 MEQ/L (21.0-32.0); BLOOD UREA NITROGEN 10 MG/DL (7-18); CHLORIDE 104 MEQ/L (98-107); GLOMERULAR FILTRATION RATE 72 ML/MIN (>89); POTASSIUM 3.7 MEQ/L (3.5-5.1); SODIUM (NA) 139 MEQ/L (136-145)
[2016-09-25 10:58] LABS: ALKALINE PHOSPHATASE 128 U/L (45-117); TOTAL BILIRUBIN ADULT 0.4 MG/DL (0.2-1.0)
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
[2016-09-25] MEDS ORDERED: ONDANSETRON HCL 4 MG/2 ML VIAL IVP PRN (11:30)
[2016-09-25] MEDS ORDERED: LACTULOSE SYRUP 20 GM/30 ML CUP PO PRN (11:30)
[2016-09-25] MEDS ORDERED: SENNOSIDES 8.6 MG TAB PO PRN (11:30)
[2016-09-25] MEDS ORDERED: NALOXONE HCL 0.4 MG/ML AMP IV PRN (11:30)
[2016-09-25] MEDS ORDERED: DOCUSATE SODIUM 50 MG/SENNA 8.6 MG TAB PO PRN (11:30)
[2016-09-25] MEDS ORDERED: BISACODYL 10 MG SUPP RECTAL PRN (11:30)
[2016-09-25] MEDS ORDERED: SODIUM CHLORIDE 0.9% FLUSH 10 ML FLUSH IV FLUSH PRN (11:30)
[2016-09-25] MEDS ORDERED: MAGNESIUM HYDROXIDE SUSP 30 ML CUP PO PRN (11:30)
[2016-09-25 11:40] VITALS: BP 126/58; PULSE 84; RESP 17; TEMP 98; O2SAT 99
[2016-09-25] MEDS: SODIUM CHLORIDE 0.9% FLUSH 10 ML FLUSH IV FLUSH SCH ×2 (11:50→20:45)
[2016-09-25 11:59] VITALS: BP_SYST 114; BP_SYST 128; BP_SYST 134; BP_DIAS 68; BP_DIAS 77; BP_DIAS 84; RESP 17; RESP 18
[2016-09-25] MEDS ORDERED: NICOTINE 14 MG/24 HR PATCH T-DERMAL SCH (14:00)
[2016-09-25] MEDS: NICOTINE 21 MG/24 HR PATCH T-DERMAL SCH (14:44)
--- NOTE | 2016-09-25 14:53 | RADRPT ---
EXAM DATE/TIME: 09/25/2016 13:11 [place] COMPARISON: No previous studies available for comparison. INDICATIONS : General weakness. MEDICAL HISTORY : Diabetes mellitus type 2. Leukemia. SURGICAL HISTORY : Tonsillectomy. Left orbital surgery. ENCOUNTER: Subsequent ACUITY: 1 day PAIN SCORE: 0/10 LOCATION: head. TECHNIQUE: Multiplanar, multisequence MRI of the brain was performed without contrast. FINDINGS: CEREBRUM: The ventricles are normal for age. No evidence of midline shift, mass lesion, hemorrhage or acute in farction. No extraaxial fluid collections are seen. The pituitary gland and suprasellar cistern are normal in configuration. WHITE MATTER: No significant signal abnormalities are seen in the white matter. POSTERIOR FOSSA: The cerebellum and brainstem are intact. The 4th ventricle is midline. The cerebellopontine angle is unremarkable. The cerebellar tonsils are normal in position. DIFFUSION IMAGING: No focal areas of restricted diffusion are seen. No evidence of acute infarction. EXTRACRANIAL: The visualized portions of the orbits and paranasal sinuses are unremarkable. CONCLUSION: Negative noncontrast MRI of the brain. Agustin Mendoza MD on September 25, 2016 at 14:50 Board Certified Radiologist. This report was verified electronically.
--- NOTE | 2016-09-25 15:32 | HHI.FPPN ---
Subjective Remarks Patient seen and examined, discussed with the medicine team. This is a 51-year-old [place] who was in the process of a workup for leukemia but he was uncomfortable with the plan and left AMA over the weekend. He was seen by hematology/oncology and a workup was begun. He reports a history of bipolar disorders seizure disorder diabetes and anxiety and he is also hepatitis C antibody positive. He reports having a seizure this morning, when he was incontinent of bowel and bladder and bit his lip. He reports significant weight loss, fatigue and night sweats. Please see history and physical examination for this admission for additional past, family, social history and review of systems at the time of admission. He is a [id number] history smoker and uses cocaine daily. History of being incarcerated for 27 years in the past. When I see him today, he reports a ravenous appetite, he would like double portions of his meals because he does not feel he is going to get enough food. He also requested his pain medications be scheduled so that he can stay ahead of his discomfort. Objective Vitals Vital Signs Date Time Temp Pulse Resp B/P Pulse Ox O2 Delivery O2 Flow Rate FiO2 09/25/16 11:59 89 17 128/77 91 17 134/84 85 18 114/68 09/25/16 11:40 98.0 84 17 126/58 99 Room Air 09/25/16 10:30 17 09/25/16 10:09 18 Room Air 09/25/16 09:58 98.2 86 15 137/82 98 Result Diagram: 09/25/16 1024 09/25/16 1024 Other Results Laboratory Tests Test 09/25/16 10:24 Eosinophils (%) (Auto) 4.9 % Activated Partial 31.0 SEC Thromboplast Time Estimat Glomerular Filtration 72 ML/MIN Rate Random Glucose 112 MG/DL Aspartate Amino Transf 91 U/L (AST/SGOT) Alkaline Phosphatase 128 U/L Albumin 2.9 GM/DL Imaging Last Impressions Brain MRI 09/25/16 0000 Signed Impressions: Service Date/Time: Sunday, September 25, 2016 13:11 - CONCLUSION: Negative noncontrast MRI of the brain. Agustin Mendoza MD Objective Remarks O. CONSTITUTIONAL/GEN: normally nourished, in NAD. EYES: conjunctiva normal, PERRLA, EOMI. ENT: Mouth and pharynx normal. NECK: thyroid midline, supple LUNGS: clear A-P, respiratory effort is normal. CARDIOVASCULAR: RR without murmur or gallop. GI/ABD: soft without masses, without organomegaly. NEURO: No focal deficits. SKIN: color very stephens, no rashes noted. HEME/LYMPH: no bruising, petechia or significant adenopathy MUSC: back is normal in appearance. Extremities are normal in appearance with the exception of pedal edema. PSYCH/MENTAL STATUS: Alert and oriented x 3. A/P Assessment and Plan Mr. Oropeza is a 51 year old M who presents with pedal edema and low back pain and found to have findings concerning for chronic leukemia on previous CT abd/ pelvis as well as bilateral mild nonobstructing kidney stones. Attending Attestation Patient seen and examined. Case reviewed and discussed with the resident team. Agree with plan of care as discussed with me and documented in the resident note. Problem List: (1) Nutrition, metabolism, and development symptoms Status: Acute (2) History of seizure Status: Chronic (3) Abnormal CT of the abdomen Status: Acute (4) History of substance abuse Status: Chronic (5) Bilateral kidney stones Status: Acute Neelam Bryant MD Sep 25, 2016 15:32
[2016-09-25 17:29] VITALS: BP 120/66; PULSE 77; RESP 18; TEMP 98.5; O2SAT 97
[2016-09-25] MEDS ORDERED: cloNIDine HCL 0.1 MG TAB PO PRN (18:45)
[2016-09-25] MEDS ORDERED: LORazepam 2 MG/ML VIAL IV PUSH PRN (18:45)
[2016-09-25] MEDS ORDERED: GLUCAGON 1 MG/ML VIAL OTHER PRN (18:45)
[2016-09-25] MEDS ORDERED: DEXTROSE 50% IN WATER 50 ML VIAL(D50) IV PRN (18:45)
[2016-09-25 19:27] VITALS: BP 136/75; PULSE 82; RESP 18; TEMP 98; O2SAT 96
[2016-09-25 20:21] VITALS: O2SAT 96
[2016-09-25] MEDS: TAMSULOSIN HCL 0.4 MG CAP PO SCH (20:45)
[2016-09-25] MEDS: INSULIN ASPART SUPPLEMENTAL SCALE SQ SCH (20:46)
[2016-09-25] MEDS: MORPHINE SULFATE 4 MG/ML INJ IV PUSH PRN (20:46)
[2016-09-25] MEDS ORDERED: REMOVE OLD PATCH T-DERMAL SCH (21:00)
--- NOTE | 2016-09-25 21:29 | MG ---
cc: NOLAN GONZALES Lab No: [id number] Date: 09/25/16 Age: Sex: M Race: TECHNIQUE 17 channel EEG. DESCRIPTION The background rhythm reveals a symmetrical alpha rhythm, frequency 8-9 Hz, amplitude is 20-30 microvolts. There is some muscle artifact present. Some beta activity is seen. No lateralizing features identified and no epileptiform features identified. Photic stimulation was done in a stepwise fashion with a normal driving response. INTERPRETATION Normal EEG. MD SHANITA Colon/YUSUF /9:10 PM /9:25 PM
[2016-09-26] VITALS (8 sets, daily range): BP systolic 118–130; BP diastolic 60–77; PULSE 66–86; RESP 18–20; TEMP 96.9–98.5; O2SAT 93–97
[2016-09-26] MEDS: MORPHINE SULFATE 4 MG/ML INJ IV PUSH PRN ×5 (04:41→23:10)
[2016-09-26] MEDS: TAMSULOSIN HCL 0.4 MG CAP PO SCH (10:16)
[2016-09-26] MEDS: NICOTINE 21 MG/24 HR PATCH T-DERMAL SCH (10:17)
[2016-09-26] MEDS: SODIUM CHLORIDE 0.9% FLUSH 10 ML FLUSH IV FLUSH SCH ×2 (10:17→20:53)
[2016-09-26] MEDS: INSULIN ASPART SUPPLEMENTAL SCALE SQ SCH ×3 (11:00→21:00)
[2016-09-26 13:34] LABS: AUTOMATED NEUTROPHIL # 3.1 TH/MM3 (1.8-7.7); BASOPHIL % 0.6 % (0.0-2.0); EOSINOPHIL # 0.2 TH/MM3 (0-0.4); EOSINOPHIL % 3.6 % (0.0-4.0); HEMATOCRIT 41.3 % (39.0-51.0); HEMO FLAGS DIFF FINAL; LYMPH % 35.2 % (9.0-44.0); MEAN CELL VOLUME 88.3 FL (80.0-100.0); MEAN CORPUSCULAR HEMOGLOBIN 29.7 PG (27.0-34.0); MEAN CORPUSCULAR HGB CONC 33.7 % (32.0-36.0); MONO % 5.7 % (0.0-8.0); NEUT % 54.9 % (16.0-70.0); PLATELET COUNT 249 TH/MM3 (150-450); RED BLOOD COUNT 4.68 MIL/MM3 (4.50-5.90); RED CELL DISTRIBUTION WIDTH 13.8 % (11.6-17.2); WHITE BLOOD COUNT 5.7 TH/MM3 (4.0-11.0)
[2016-09-26 13:58] LABS: BICARBONATE 32.8 MEQ/L (21.0-32.0); POTASSIUM 4.6 MEQ/L (3.5-5.1)
--- NOTE | 2016-09-26 14:24 | HHI.FPPN ---
Subjective Remarks Patient seen and examined this morning. No acute events overnight with VS WNL. He states that the LE "burning" pain has improved with his pain medications and is currently controlled. He still has mild ABD pain, but again is controlled currently with his medication. He has no other complaints and denies any fevers , chills, SOB, chest pain, NVD, or calf tenderness. (Jose Cruz Mtz MD R1) Objective Vitals Vital Signs Date Time Temp Pulse Resp B/P Pulse Ox O2 Delivery O2 Flow Rate FiO2 09/26/16 12:00 98.5 86 19 122/60 97 09/26/16 10:30 18 09/26/16 07:50 97.8 76 19 129/70 96 09/26/16 07:41 93 21 09/26/16 04:31 96.9 86 20 126/72 95 09/26/16 00:57 97.6 75 18 130/74 96 09/25/16 20:21 96 09/25/16 19:27 98.0 82 18 136/75 96 09/25/16 17:29 98.5 77 18 120/66 97 (Jose Cruz Mtz MD R1) Result Diagram: 09/26/16 1313 09/26/16 1313 Objective Remarks O. CONSTITUTIONAL/GEN: normally nourished, in NAD. EYES: conjunctiva normal, PERRLA, EOMI. GENERAL: 51 y/o M in NAD, resting comfortably in bed SKIN: Warm and dry. No rashes or erythema. Suntanned. Healing ulceration from a burn on L palmar aspect of the hand. HEENT: AT, NC with EOMI. No LAD or JVD appreciated. No rhinorrhea. CARDIOVASCULAR: RRR with 2+ systolic murmur over the aortic area. Peripheral pulses 2+. Capillary refill <2 seconds. RESPIRATORY: CTAB with no CRW. No increased WOB. GASTROINTESTINAL: Abdomen soft, nontender with +BS. No organomegaly or masses appreciated. No rebound tenderness. No guarding. MUSCULOSKELETAL: Normal range of motion. 5/5 strength throughout. 2+ lower extremity edema up to distal tibia bilaterally. Marked pedal edema. Moderate TTP of bilateral feet. PT and DP pulses are 2+ bilaterally. BACK: Nontender without obvious deformity. No CVA tenderness. NEURO: AOx3. Normal speech. vat operator grossly intact. Motor grossly normal. (Jose Cruz Mtz MD R1) A/P Assessment and Plan Mr. Oropeza is a 51 year old M who presents with pedal edema and low back pain and found to have findings concerning for chronic leukemia on previous CT abd/ pelvis as well as bilateral mild nonobstructing kidney stones. (Jose Cruz Mtz MD R1) Attending Attestation Patient seen and examined. Case reviewed and discussed with the resident team. Agree with plan of care as discussed with me and documented in the resident note. (Neelam Bryant MD) Problem List: (1) Abnormal CT of the abdomen Status: Acute Plan: Patient presenting with lower back pain and LE edema found to have imaging suggestive of possible neoplastic process of unknown etiology. - CT abdomen/pelvis 09/20: Image showing bilateral mild nonobstructing kidney stones. No definite ureteral stone or hydronephrosis. Splenomegaly with multi compartment lymphadenopathy. Findings worrisome for chronic leukemia. Small right lung base nodule. - Brain MRI 09/25: Negative noncontrast MRI of the brain. - LE US 09/20: No evidence of the lower extremity DVT on R or L Labs on over last 2 admissions: - CBC remains within normal limits - TB quantiferon test: pending - ESR 09/20: 40 - CRP 09/20: 0.7 - LDH 09/20: 152 - JOSS 09/20: Positive - JOSS titer, pattern, and interpretation: Pending - RF 09/20: Negative - Oncology consulted - Recommending CT chest to evaluate for additional lymphadenopathy and pt will need serial monitoring over time to evaluate for progression of lymphadenopathy - CM consult; pt is homeless may need assistance for outpatient follow up (2) Orthopnea Status: Acute Plan: Patient with symptoms of orthopnea of unknown etiology. - Repeat Echo: pending -Orthostatic vitals: WNL - BNP 11 on admission 09/20 - Last echo in EMR 07/2004 showing EF 55-65% - Continue to monitor (3) Bilateral kidney stones Status: Acute Plan: Patient with history of renal stones found to have BL nonobstructing stones on imaging at previous admission. - CT abdomen/pelvis 09/20: Findings of bilateral mild obstructing kidney stones, no definite ureteral stone or hydronephrosis - UA unremarkable on 09/20 - Repeat UA: Pending - Flomax 0.4 mg po daily, hold if SBP < 100 or DBP < 60 - Stain urine for calculi (4) History of seizure Status: Chronic Plan: Patient with Hx of seizure disorder. He describes episode at admission concerning for possible seizure. - EEG: Pending - Seizure precautions - Ativan 1mg IV q15m prn seizures (5) DM (diabetes mellitus) Status: Chronic Plan: Patient with Hx of DM - Accuchecks and Low-dose ISS per protocol (6) Hypertension Status: Chronic Plan: Patient with Hx of HTN - BP WNLs on admission - Monitor vitals q4h - Clonidine 0.1mg Q6H prn for BP >180/100 (7) History of substance abuse Status: Chronic Plan: Patient with history of IVD abuse - Admits to snorting cocaine daily - UDS + for cocaine on 09/20 - Repeat UDS pending - Denies IV drug use -HIV: Negative -Hep B: negative - Nicotine patch daily (8) Hepatitis C antibody positive in blood Status: Acute Plan: Patient found to have positive Hepatitis C antibody on previous admission. -Hepatitis C antibody: positive -Hepatitis C viral load and genotype: pending (9) Nutrition, metabolism, and development symptoms Status: Acute Plan: Fluids: Tolerating PO fluids Electrolytes: WNLs, continue to monitor and replete as necessary Nutrition: Regular diet as tolerated DVT ppx: BL SCDs, add chemical anticoagulation if anticipating longer hospital stay Prophylaxis: Tylenol prn for fever, Tylenol/Morphine prn for pain, Zofran prn for N/V, Constipation regimen (Jose Cruz Mtz MD R1) Jose Cruz Mtz MD R1 Sep 26, 2016 14:24 Neelam Bryant MD Sep 26, 2016 15:51
--- NOTE | 2016-09-26 14:56 | ECHRPT ---
Indication: Shortness of breath CONCLUSIONS The left ventricular systolic function is normal with an estimated ejection fraction of 60%. Mild thickening of the aortic valve leaflets. Mildly calcified aortic anulus. BP: / HR: Rhythm: Sinus MEASUREMENTS (Male / Female) Normal Values Technical Quality:Fair 2D ECHO LV Diastolic Diameter PLAX 4.3 cm 4.2 - 5.9 / 3.9 - 5.3 cm LV Systolic Diameter PLAX 3.4 cm IVS Diastolic Thickness 0.8 cm 0.6 - 1.0 / 0.6 - 0.9 cm LVPW Diastolic Thickness 0.9 cm 0.6 - 1.0 / 0.6 - 0.9 cm LV Relative Wall Thickness 0.4 RV Internal Dim ED PLAX 2.0 cm LA Systolic Diameter LX 3.6 cm 3.0 - 4.0 / 2.7 - 3.8 cm M-MODE AV Cusp Separation MM 2.0 cm DOPPLER AV Peak Velocity 205.0 cm/s AV Peak Gradient 16.8 mmHg LVOT Peak Velocity 154.0 cm/s LVOT Peak Gradient 9.5 mmHg Mitral E Point Velocity 66.1 cm/s Mitral A Point Velocity 89.8 cm/s Mitral E to A Ratio 0.7 TR Peak Velocity 231.0 cm/s TR Peak Gradient 21.3 mmHg FINDINGS Left Ventricle Normal left ventricular size and wall thickness. The left ventricular systolic function is normal with an estimated ejection fraction of 60%. Left ventricular diastolic function parameters are normal. Right Ventricle Normal right ventricular size and systolic function. Left Atrium The left atrial size is normal. Right Atrium The right atrial size is normal. Atrial Septum Normal atrial septal thickness without atrial level shunting by limited color doppler interrogation. Aorta The aortic root and proximal ascending aorta are normal in size on limited imaging. Mitral Valve Structurally normal mitral valve. No mitral valve stenosis or regurgitation. Aortic Valve Mild thickening of the aortic valve leaflets. Mildly calcified aortic anulus. Tricuspid Valve Structurally normal tricuspid valve. No tricuspid valve stenosis or regurgitation. Vessels The inferior vena cava is normal in size. Pericardium No pericardial effusion. Regina Marsh MD, FACC Edited by: [employer] CV Silver Designer (Electronically Signed) Final Date:26 September 2016 14:55 Amended: 27 September 2016 13:27 DAVID
[2016-09-26] MEDS: ACETAMINOPHEN 325 MG TAB PO PRN ×2 (20:00→20:55)
[2016-09-26] MEDS: REMOVE OLD PATCH T-DERMAL SCH (21:00)
[2016-09-27] VITALS (7 sets, daily range): BP systolic 124–144; BP diastolic 72–78; PULSE 66–85; RESP 18–20; TEMP 96.8–98.4; O2SAT 94–99
--- NOTE | 2016-09-27 00:36 | PD.ONC.PN ---
Subjective Subjective Remarks patient know to oncology service left [facility] before presents with abdominal pain CT abdomen with non-specific lymphadenopathy Objective Data Date Time Temp Pulse Resp B/P Pulse Ox O2 Delivery O2 Flow Rate FiO2 09/26/16 19:58 96 21 09/26/16 15:55 98.4 86 18 123/77 95 09/26/16 15:00 17 09/26/16 12:00 98.5 86 19 122/60 97 09/26/16 07:50 97.8 76 19 129/70 96 09/26/16 07:41 93 21 09/26/16 04:31 96.9 86 20 126/72 95 09/26/16 00:57 97.6 75 18 130/74 96 Result Diagram: 09/26/16 1313 09/26/16 1313 Laboratory Results Laboratory Tests Test 09/26/16 13:13 White Blood Count 5.7 TH/MM3 Red Blood Count 4.68 MIL/MM3 Hemoglobin 13.9 GM/DL Hematocrit 41.3 % Mean Corpuscular Volume 88.3 FL Mean Corpuscular Hemoglobin 29.7 PG Mean Corpuscular Hemoglobin 33.7 % Concent Red Cell Distribution Width 13.8 % Platelet Count 249 TH/MM3 Mean Platelet Volume 8.1 FL Neutrophils (%) (Auto) 54.9 % Lymphocytes (%) (Auto) 35.2 % Monocytes (%) (Auto) 5.7 % Eosinophils (%) (Auto) 3.6 % Basophils (%) (Auto) 0.6 % Neutrophils # (Auto) 3.1 TH/MM3 Lymphocytes # (Auto) 2.0 TH/MM3 Monocytes # (Auto) 0.3 TH/MM3 Eosinophils # (Auto) 0.2 TH/MM3 Basophils # (Auto) 0.0 TH/MM3 CBC Comment DIFF FINAL Differential Comment Sodium Level 138 MEQ/L Potassium Level 4.6 MEQ/L Chloride Level 101 MEQ/L Carbon Dioxide Level 32.8 MEQ/L Anion Gap 4 MEQ/L Blood Urea Nitrogen 13 MG/DL Creatinine 0.91 MG/DL Estimat Glomerular Filtration 87 ML/MIN Rate Random Glucose 89 MG/DL Calcium Level 8.7 MG/DL Administered Medications Medications (Trade) Dose Ordered Sig/Anitha Route PRN Reason Start Time Stop Time Status Last Admin Dose Admin Sodium Chloride (NS Flush) 2 ml BID IV FLUSH 09/25/16 11:30 09/26/16 20:53 Nicotine (Habitrol 21 Mg Patch.24 Hr) 1 patch DAILY T-DERMAL 09/25/16 14:15 09/26/16 10:17 Miscellaneous Information 1 HS T-DERMAL 09/25/16 21:00 09/26/16 21:00 Acetaminophen (Tylenol) 650 mg Q6HR PRN PO PAIN SCALE 6 TO 10 09/25/16 14:15 09/26/16 20:00 Morphine Sulfate (Morphine Inj) 2 mg Q4HR PRN IV PUSH BREAKTHROUGH PAIN 09/25/16 14:15 09/26/16 23:10 Tamsulosin HCl (Flomax) 0.4 mg DAILY PO 09/25/16 18:45 09/26/16 10:16 Objective Remarks GENERAL: cachectic/thin, sun burnt SKIN: Warm and dry. HEAD: Normocephalic. EYES: No scleral icterus. No injection or drainage. NECK: Supple, trachea midline. No JVD or lymphadenopathy. LYMPHATIC: No adenopathy. CARDIOVASCULAR: Regular rate and rhythm without murmurs. RESPIRATORY: Breath sounds equal bilaterally. No accessory muscle use. GASTROINTESTINAL: Abdomen soft, non-tender, nondistended. EXTREMITIES: No cyanosis, or edema. MUSCULOSKELETAL: Adequate muscle tone. NEUROLOGICAL: No obvious focal deficit. Awake, alert, and oriented x3. PSYCHIATRIC: Appropriate mood and affect; insight and judgment normal. Assessment/Plan Problem List: (1) Lymphadenopathy, abdominal Status: Acute (2) Abnormal CT of the abdomen Status: Acute (3) History of substance abuse Status: Chronic (4) Hepatitis C antibody positive in blood Status: Acute Assessment Assessment/Plan Problem List: (1) Lymphadenopathy, abdominal Status: Acute Plan: --Nonspecific findings of abdominal lymphadenopathy and moderate splenomegaly. --differential includes infectious versus reactive lymphadenopathy vs. auto- immune vs possibility of lymphoma/lymphoproliferative myeloproliferative disorder. -- HIV negative and hepatitis profile + hepatitis C --CRP and ESR both elevated -- CT chest 8mm lung nodule--non-specific --would not recommend obtaining a biopsy at this time until we have ruled out the other causes of LAD Assessment 51y/o male with abnormal findings of abdominal lymphadenopathy and splenomegaly. Admitted with LE edema, LBP and abdominal pain history of renal calculi and history of Zygomatica maxillary complex, fracture as well as orbital floor blowout several years ago who underwent open reduction and internal fixation. +substance abuse and he is actively using cocaine. h/o hepatitis C Plan 1. ID and auto-immune w/u ongoing. JOSS is positive and also Hep C positive. Viral load pending. 2. Likelihood of lymphoma/leukemia is low considering no cytopenias and LDH is normal. 3. Biopsy of the abdominal Lymph node will be the last resort since it would require laparoscopic vs open abdominal biopsy d/w Kale Llamas MD Sep 27, 2016 00:36
[2016-09-27] MEDS: ACETAMINOPHEN 325 MG TAB PO PRN ×2 (03:20→23:12)
[2016-09-27] MEDS: MORPHINE SULFATE 4 MG/ML INJ IV PUSH PRN ×4 (04:14→20:23)
[2016-09-27] MEDS: INSULIN ASPART SUPPLEMENTAL SCALE SQ SCH ×4 (06:15→20:22)
[2016-09-27] MEDS: NICOTINE 21 MG/24 HR PATCH T-DERMAL SCH (09:42)
[2016-09-27] MEDS: SODIUM CHLORIDE 0.9% FLUSH 10 ML FLUSH IV FLUSH SCH ×2 (09:43→20:23)
[2016-09-27] MEDS: TAMSULOSIN HCL 0.4 MG CAP PO SCH (09:43)
--- NOTE | 2016-09-27 16:56 | PD.ONC.PN ---
Subjective Subjective Remarks Afebrile overnight. "My back pain is getting worse, I feel like I am about to pass this kidney stone " He just got something for pain and is requesting to sleep. Objective Data Date Time Temp Pulse Resp B/P Pulse Ox O2 Delivery O2 Flow Rate FiO2 09/27/16 16:22 17 09/27/16 15:38 98.0 85 18 144/76 94 09/27/16 12:00 97.5 81 20 134/74 95 09/27/16 08:38 96 09/27/16 08:00 98.0 81 18 127/73 95 09/27/16 03:58 98.4 77 18 125/73 99 09/27/16 00:00 98.0 74 18 124/72 98 09/26/16 20:00 98.4 66 18 118/67 97 09/26/16 19:58 96 21 Result Diagram: 09/26/16 1313 09/26/16 1313 Administered Medications Medications (Trade) Dose Ordered Sig/Anitha Route PRN Reason Start Time Stop Time Status Last Admin Dose Admin Sodium Chloride (NS Flush) 2 ml BID IV FLUSH 09/25/16 11:30 09/27/16 09:43 Nicotine (Habitrol 21 Mg Patch.24 Hr) 1 patch DAILY T-DERMAL 09/25/16 14:15 09/27/16 09:42 Miscellaneous Information 1 HS T-DERMAL 09/25/16 21:00 09/26/16 21:00 Acetaminophen (Tylenol) 650 mg Q6HR PRN PO PAIN SCALE 6 TO 10 09/25/16 14:15 09/27/16 03:20 Morphine Sulfate (Morphine Inj) 2 mg Q4HR PRN IV PUSH BREAKTHROUGH PAIN 09/25/16 14:15 09/27/16 15:52 Tamsulosin HCl (Flomax) 0.4 mg DAILY PO 09/25/16 18:45 09/27/16 09:43 Objective Remarks GENERAL: Disheveled middle aged male, lying in bed in no distress. SKIN: Warm and dry. HEAD: Normocephalic. EYES: No injection or drainage. NECK: Supple, trachea midline. CARDIOVASCULAR: Regular rate and rhythm without murmurs. RESPIRATORY: Breath sounds equal bilaterally. No accessory muscle use. GASTROINTESTINAL: Abdomen protuberant but soft, nondistended. Mildly tender. EXTREMITIES: No cyanosis. Mild RLE edema. NEUROLOGICAL: No obvious focal deficit. Awake, alert, and oriented x3. Assessment/Plan Problem List: (1) Lymphadenopathy, abdominal Status: Acute (2) Hepatitis C antibody positive in blood Status: Acute Assessment 51y/o male with abnormal findings of abdominal lymphadenopathy and splenomegaly. Admitted with LE edema, LBP and abdominal pain, history of renal calculi and history of Zygomatica maxillary complex, fracture as well as orbital floor blowout several years ago who underwent open reduction and internal fixation. +substance abuse and he is actively using cocaine. h/o hepatitis C Plan 1. Hep C, TB workup pending. 2. Will recheck LDH in am. Likelihood of lymphoma/leukemia is low considering no cytopenias and LDH is normal. 3. Hold off on biopsy of lymphadenopathy for now. 4. Will obtain US of RLE as pt has some swelling. Attending Statement The exam, history, and the medical decision-making described in the above note were completed with the assistance of the mid-level provider. I reviewed and agree with the findings presented. I attest that I had a [id number] encounter with the patient on the same day, and personally performed and documented my assessment and findings in the medical record Annabelle Silva Sep 27, 2016 16:56 Kale Olson MD Sep 27, 2016 23:37
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
[2016-09-27] MEDS: REMOVE OLD PATCH T-DERMAL SCH (20:23)
--- NOTE | 2016-09-27 21:18 | RADRPT ---
EXAM DATE/TIME: 09/27/2016 20:34 [facility] COMPARISON: No previous studies available for comparison. INDICATIONS : Right leg swelling. MEDICAL HISTORY : Hypertension. Carcinoma, pancreas. Diabetes. Seizures. Anxiety. SURGICAL HISTORY : Tonsillectomy. Left eye plastic surgery. ENCOUNTER: Subsequent ACUITY: 1 week PAIN SCORE: 0/10 LOCATION: Right leg. TECHNIQUE: Venous ultrasound of the leg was performed from the inguinal ligament to the proximal calf. Real-triston e, color Doppler and spectral tracing, compression and augmentation techniques were used. FINDINGS: There is normal compressibility of the deep venous system from the inguinal region to the proximal ca lf. No echogenic clot is seen in the lumen of the common femoral, femoral, popliteal, and posterior tibial veins. There is a normal response of the venous system to proximal and distal augmentation an d respiration. CONCLUSION: Normal examination. Alverto Whitfield MD on September 27, 2016 at 21:15 Board Certified Radiologist. This report was verified electronically.
[2016-09-28 00:20] VITALS: BP 129/76; PULSE 98; RESP 20; TEMP 97.5; O2SAT 95
[2016-09-28] MEDS: MORPHINE SULFATE 4 MG/ML INJ IV PUSH PRN ×3 (00:26→14:19)
[2016-09-28 04:42] LABS: ALT (GPT) 67 U/L (12-78); ANION GAP 7 MEQ/L (5-15); AST (GOT) 95 U/L (15-37); BICARBONATE 27.9 MEQ/L (21.0-32.0); BLOOD UREA NITROGEN 13 MG/DL (7-18); CHLORIDE 101 MEQ/L (98-107); GLOMERULAR FILTRATION RATE 89 ML/MIN (>89); POTASSIUM 4.2 MEQ/L (3.5-5.1); SODIUM (NA) 136 MEQ/L (136-145)
[2016-09-28 04:44] LABS: ALKALINE PHOSPHATASE 112 U/L (45-117); LDH SERUM 166 U/L (87-241); TOTAL BILIRUBIN ADULT 0.4 MG/DL (0.2-1.0)
[2016-09-28 05:32] VITALS: BP 127/74; PULSE 82; RESP 18; TEMP 97.9; O2SAT 93
[2016-09-28] MEDS: INSULIN ASPART SUPPLEMENTAL SCALE SQ SCH ×2 (06:37→12:14)
[2016-09-28 08:06] VITALS: BP 95/60; PULSE 68; RESP 18; TEMP 97.8; O2SAT 96
[2016-09-28] MEDS ORDERED: ALBUTEROL SULFATE 90 MCG/ACT HFA 8 GM INHALER INH PRN (09:15)
[2016-09-28 09:51] LABS: HCV RNA PCR IU/ML 1890000 IU/mL (()); HCV RNA PCR LOGIU/ML 6.28 (())
[2016-09-28] MEDS: TAMSULOSIN HCL 0.4 MG CAP PO SCH (10:14)
[2016-09-28] MEDS: SODIUM CHLORIDE 0.9% FLUSH 10 ML FLUSH IV FLUSH SCH (10:14)
[2016-09-28] MEDS: NICOTINE 21 MG/24 HR PATCH T-DERMAL SCH (10:15)
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
[2016-09-28 14:31] VITALS: BP 127/78; PULSE 96; RESP 18; TEMP 97.3; O2SAT 98
[2016-09-28 15:10] VITALS: BP 126/73; PULSE 95; RESP 18; TEMP 98.2; O2SAT 93
--- NOTE | 2016-09-28 15:17 | HHI.DCPOC ---
Discharge Care Plan Diagnosis: (1) Lymphadenopathy, abdominal (2) Hepatitis C antibody positive in blood Goals to Promote Your Health * To prevent worsening of your condition and complications * To maintain your health at the optimal level Directions to Meet Your Goals Take your medications as prescribed Follow your dietary instruction Follow activity as directed Keep your appointments as scheduled Take your immunizations and boosters as scheduled If your symptoms worsen call your PCP, if no PCP go to Urgent Care Center or Emergency Room Smoking is Dangerous to Your Health. Avoid second hand smoke Call the 24-hour hour crisis hotline for domestic abuse at Sebastian Mcmanus MD R2 Sep 28, 2016 3:17 pm
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
[2016-09-28 19:57] LABS: MITOGEN MINUS NIL RESULT >10.00 IU/mL (()); NIL RESULT 0.04 IU/mL (()); QUANTIFERON TB GOLD RESULT Negative (Negative)
== END 2016-09-28 16:37 | disposition home or self-care (01) ==
LOC: NEPE 09:55 → NEDA 11:11 → NEPFCDU 12:30
PROVIDERS: ADMIT Family Medicine; ATTEND Family Medicine
DX: R59.1 Generalized enlarged lymph nodes (principal); R60.0 Localized edema; R06.01 Orthopnea; N20.0 Calculus of kidney; B19.20 Unspecified viral hepatitis C without hepatic coma; G40.909 Epilepsy, unspecified, not intractable, without status epilepticus; R16.1 Splenomegaly, not elsewhere classified; E11.9 Type 2 diabetes mellitus without complications; I10 Essential (primary) hypertension; F31.9 Bipolar disorder, unspecified; F41.9 Anxiety disorder, unspecified; F17.200 Nicotine dependence, unspecified, uncomplicated; R63.4 Abnormal weight loss; Z68.24 Body mass index [BMI] 24.0-24.9, adult; Z66 Do not resuscitate; Z59.0 Homelessness; Z88.0 Allergy status to penicillin; Z88.8 Allergy status to other drugs, medicaments and biological substances; Z91.018 Allergy to other foods
CPT/HCPCS: 70551; 80048; 80053; 82948; 83615; 85025; 85610; 85730; 86480; 87522; 87902; 93306; 93971; 95819; 96374; 96376; 97116; 97161; 99285; G0378; G8987; G8988; J2270

== ENCOUNTER 2016-10-07 06:06 | Emergency (ER) | payer SELFPAY ==
[~2016-10-07] VITALS: Ht 175.3 cm; Wt 75.0 kg
[2016-10-07 06:07] VITALS: BP 128/73; PULSE 91; RESP 16; TEMP 98.5; O2SAT 97
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
[2016-10-07] MEDS ORDERED: NAPROXEN 500 MG TAB PO ONE (06:30)
== END 2016-10-07 06:47 | disposition home or self-care (01) ==
LOC: NEPE 06:06
DX: R53.1 Weakness (principal); R60.9 Edema, unspecified; B19.20 Unspecified viral hepatitis C without hepatic coma; R59.1 Generalized enlarged lymph nodes; R53.83 Other fatigue; F31.9 Bipolar disorder, unspecified; F41.9 Anxiety disorder, unspecified; I10 Essential (primary) hypertension; R73.03 Prediabetes
CPT/HCPCS: 99282

== ENCOUNTER 2016-12-06 10:11 | Emergency (ER) | payer SELFPAY ==
[~2016-12-06] VITALS: Ht 175.3 cm; Wt 73.0 kg
[2016-12-06 10:26] VITALS: BP 117/65; PULSE 59; RESP 16; O2SAT 96
[2016-12-06 10:29] VITALS: BP 117/65; PULSE 61; RESP 16; TEMP 97.6; O2SAT 95
[2016-12-06] MEDS ORDERED: SODIUM CHLOR 0.9% 1000 ML INJ 1,000 ML IV ONE (11:30)
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
[2016-12-06 11:52] VITALS: O2SAT 98
[2016-12-06 11:54] LABS: AUTOMATED NEUTROPHIL # 3.9 TH/MM3 (1.8-7.7); BASOPHIL # 0.1 TH/MM3 (0-0.2); EOSINOPHIL # 0.2 TH/MM3 (0-0.4); EOSINOPHIL % 2.2 % (0.0-4.0); HEMATOCRIT 45.2 % (39.0-51.0); LYMPH % 39.1 % (9.0-44.0); MEAN CELL VOLUME 91.3 FL (80.0-100.0); MEAN CORPUSCULAR HEMOGLOBIN 30.2 PG (27.0-34.0); MEAN CORPUSCULAR HGB CONC 33.1 % (32.0-36.0); MONO % 6.9 % (0.0-8.0); NEUT % 50.8 % (16.0-70.0); PLATELET COUNT 269 TH/MM3 (150-450); RED BLOOD COUNT 4.95 MIL/MM3 (4.50-5.90); WHITE BLOOD COUNT 7.6 TH/MM3 (4.0-11.0)
[2016-12-06 11:55] LABS: HEMO FLAGS AUTO DIFF
[2016-12-06 12:06] LABS: APTT (PATIENT) 28.3 SEC (24.3-30.1); PROTHROMBIN TIME - PATIENT 11.6 SEC (9.8-11.6)
[2016-12-06 12:10] LABS: ALT (GPT) 59 U/L (12-78)
[2016-12-06 12:22] LABS: ALKALINE PHOSPHATASE 80 U/L (45-117); ANION GAP 8 MEQ/L (5-15); BICARBONATE 23.8 MEQ/L (21.0-32.0); BLOOD UREA NITROGEN 15 MG/DL (7-18); CHLORIDE 103 MEQ/L (98-107); GLOMERULAR FILTRATION RATE 78 ML/MIN (>89); SODIUM (NA) 135 MEQ/L (136-145); TOTAL BILIRUBIN ADULT 0.5 MG/DL (0.2-1.0)
[2016-12-06 12:23] LABS: AST (GOT) 75 U/L (15-37); CREATINE KINASE 53 U/L (39-308); POTASSIUM 3.7 MEQ/L (3.5-5.1)
[2016-12-06 12:41] LABS: BANDS 1 % (0-6); EOSINOPHILS 1 % (0-4); MYELOCYTES 1 % (0-0); NEUTROPHIL # MANUAL DIFF 3.6 TH/MM3 (1.8-7.7); POLYS (SEG NEUTROPHILS) 46 % (16-70); WBC DIFF SAMPLE 100
--- NOTE | 2016-12-06 12:41 | RADRPT ---
EXAM DATE/TIME: 12/06/2016 12:09 [facility] COMPARISON: CHEST SINGLE AP, July 03, 2015, 9:27. INDICATIONS : Shortness of breath. MEDICAL HISTORY : Diabetes mellitus type II. Leukemia. SURGICAL HISTORY : None. ENCOUNTER: Initial ACUITY: 1 day PAIN SCORE: 0/10 LOCATION: Bilateral chest FINDINGS: The heart is mildly prominent. The pulmonary vascular pattern is normal. The lungs are clear. Dege nerative changes and scoliosis of the thoracic spine are noted. CONCLUSION: 1. Mild cardiomegaly. 2. No acute focal pulmonary infiltrate or pulmonary vascular congestion. 3. Degenerative changes and scoliosis of the thoracic spine. Evan Kumari MD on December 06, 2016 at 12:33 Board Certified Radiologist. This report was verified electronically.
[2016-12-06 12:42] LABS: PLATELET ESTIMATE SMEAR NORMAL (NORMAL); PLATELET MORPHOLOGY NORMAL (NORMAL); SCAN/DIFF FINAL DIFF MANUAL
[2016-12-06 12:45] LABS: BACTERIA, URINE OCC /hpf; BLOOD, URINE NEG (NEG); COMMENT (UR) CULTURE INDICATED; CULTURE IF INDICATED CULTURE INDICATED; GLUCOSE,URINE NEG (NEG); HYALINE CAST, URINE 3 /lpf (RARE); KETONE, URINE NEG (NEG); MUCUS URINE MOD /lpf (OCC); NITRITE,URINE NEG (NEG); PH, URINE 5.5 (5.0-8.5); URINE COLOR YELLOW (YELLW/STRAW)
--- NOTE | 2016-12-06 14:04 | RADRPT ---
EXAM DATE/TIME: 12/06/2016 13:42 [facility] COMPARISON: No previous studies available for comparison. INDICATIONS : Syncope and dizziness RADIATION DOSE: 56.35 CTDIvol (mGy) MEDICAL HISTORY : Seizures. Hypertension. Diabetes mellitus type 2. SURGICAL HISTORY : None. ENCOUNTER: Initial ACUITY: 1 day PAIN SCALE: 0/10 LOCATION: cranial TECHNIQUE: Multiple contiguous axial images were obtained of the head. Using automated exposure control and adj ustment of the mA and/or kV according to patient size, radiation dose was kept as low as reasonably a chievable to obtain optimal diagnostic quality images. DICOM format image data is available electro nically for review and comparison. FINDINGS: CEREBRUM: The ventricles are normal for age. No evidence of midline shift, mass lesion, hemorrhage or acute in farction. No extra-axial fluid collections are seen. POSTERIOR FOSSA: The cerebellum and brainstem are intact. The 4th ventricle is midline. The cerebellopontine angle i s unremarkable. EXTRACRANIAL: The visualized portion of the orbits is intact. SKULL: The calvaria is intact. No evidence of skull fracture. CONCLUSION: No acute disease. Evan Kumari MD on December 06, 2016 at 14:02 Board Certified Radiologist. This report was verified electronically.
[2016-12-06] MEDS ORDERED: BACT800T5 PO (15:04)
[2016-12-06] MEDS ORDERED: SULFAMETHOXAZOLE-TRIMETHOPRIM DS 800-160 MG TAB PO ONE (15:15)
--- NOTE | 2016-12-07 14:45 | EKG ---
Date Performed: 12/06/2016 Time Performed: 10:38:22 PTAGE: 51 years EKG: SINUS BRADYCARDIA BORDERLINE LEFT AXIS DEVIATION BORDERLINE ECG PREVIOUS TRACING : 07/03/2015 09.25 Since previous tracing, no significant change noted DOCTOR: Jesus Alberto Myers Interpretating Date/Time 12/07/2016 14:45:14
== END 2016-12-06 16:05 | disposition home or self-care (01) ==
LOC: NEPE 10:11
DX: N39.0 Urinary tract infection, site not specified (principal); R55 Syncope and collapse; R53.81 Other malaise; R42 Dizziness and giddiness; I51.7 Cardiomegaly; M41.9 Scoliosis, unspecified; F31.9 Bipolar disorder, unspecified; G40.909 Epilepsy, unspecified, not intractable, without status epilepticus; E11.9 Type 2 diabetes mellitus without complications
CPT/HCPCS: 70450; 71010; 80053; 81001; 82550; 84443; 84484; 85007; 85027; 85610; 85730; 87086; 93005; 96360; 99285; J7030

== ENCOUNTER 2017-02-10 08:37 | Emergency (ER) | payer SELFPAY ==
[~2017-02-10] VITALS: Ht 175.3 cm; Wt 74.0 kg
[~2017-02-10 08:37] MED LIST changes: +BACT800T5 PO; -INSU100V2 SQ; -RANI300T PO
[2017-02-10 08:52] VITALS: BP 135/82; PULSE 94; RESP 16; TEMP 97.7; O2SAT 96
[2017-02-10] MEDS ORDERED: HUMU70IN SQ (09:06)
[2017-02-10] MEDS ORDERED: KETOROLAC TROMETHAMINE 60 MG/2 ML (IM) VIAL IM ONE (09:30)
[2017-02-10] MEDS ORDERED: LIDOCAINE HCL 1% 30 ML VIAL INFIL ONE (09:30)
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
[2017-02-10] MEDS ORDERED: LIDOCAINE HCL 1% 50 ML VIAL ONE (10:12)
[2017-02-10 11:15] VITALS: BP 124/81; PULSE 87; RESP 16; O2SAT 95
[2017-02-10 11:59] LABS: WBC, SYNOVIAL FLUID 5600 /MM3 (0-200)
[2017-02-10] MEDS ORDERED: BACT800T5 PO (12:15)
[2017-02-10] MEDS ORDERED: NORC5TAB PO (12:15)
== END 2017-02-10 13:13 | disposition home or self-care (01) ==
LOC: NEPD 08:37
DX: M70.21 Olecranon bursitis, right elbow (principal); F31.9 Bipolar disorder, unspecified; F41.9 Anxiety disorder, unspecified; E11.9 Type 2 diabetes mellitus without complications; I10 Essential (primary) hypertension; R56.9 Unspecified convulsions; F17.200 Nicotine dependence, unspecified, uncomplicated; Z79.4 Long term (current) use of insulin
CPT/HCPCS: 20605; 82945; 84157; 89051; 89060; 96372; 99284; J1885

== ENCOUNTER 2017-02-15 10:27 | Inpatient (IN) | payer SELFPAY ==
[~2017-02-15] VITALS: Ht 175.3 cm; Wt 82.0 kg
[~2017-02-15 10:27] MED LIST changes: +HUMU70IN SQ; +NORC5TAB PO
[2017-02-15 10:29] VITALS: BP 136/77; PULSE 83; RESP 13; TEMP 98.3; O2SAT 96
[2017-02-15] MEDS ORDERED: MORPHINE SULFATE 2 MG/ML INJ IV PUSH ONE ×2 (11:15→12:30)
[2017-02-15] MEDS ORDERED: SODIUM CHLOR 0.9% 1000 ML INJ 1,000 ML IV SCH (11:15)
[2017-02-15] MEDS ORDERED: ONDANSETRON HCL 4 MG/2 ML VIAL IV PUSH ONE (11:15)
[2017-02-15] MEDS ORDERED: VANCOMYCIN INJ 1,000 MG in SODIUM CHLOR 0.9% 250 ML INJ 250 ML IV ONE (11:15)
[2017-02-15] MEDS ORDERED: LIDOCAINE HCL 1% 50 ML VIAL INFIL ONE (11:15)
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
[2017-02-15 12:00] VITALS: BP 157/88; PULSE 82; RESP 16; O2SAT 96
--- NOTE | 2017-02-15 12:01 | RADRPT ---
EXAM DATE/TIME: 02/15/2017 11:33 [facility] COMPARISON: CHEST SINGLE AP, December 06, 2016, 12:09. INDICATIONS : Shortness of breath. MEDICAL HISTORY : None. SURGICAL HISTORY : None. ENCOUNTER: Initial ACUITY: 1 day PAIN SCORE: 0/10 LOCATION: Bilateral chest FINDINGS: A single view of the chest demonstrates the lungs to be symmetrically aerated without evidence of mas s, infiltrate or effusion. No evidence of pneumothorax. The cardiomediastinal contours are unremarka ble. Osseous structures are intact. CONCLUSION: The lungs are clear. Agustin Mendoza MD on February 15, 2017 at 11:47 Board Certified Radiologist. This report was verified electronically.
[2017-02-15 12:04] LABS: AUTOMATED NEUTROPHIL # 4.9 TH/MM3 (1.8-7.7); BASOPHIL # 0.1 TH/MM3 (0-0.2); BASOPHIL % 0.7 % (0.0-2.0); EOSINOPHIL # 0.3 TH/MM3 (0-0.4); EOSINOPHIL % 3.1 % (0.0-4.0); HEMATOCRIT 40.9 % (39.0-51.0); HEMO FLAGS DIFF FINAL; LYMPH % 31.8 % (9.0-44.0); LYMPHOCYTE # 2.9 TH/MM3 (1.0-4.8); MEAN CELL VOLUME 90.5 FL (80.0-100.0); MEAN CORPUSCULAR HEMOGLOBIN 31.5 PG (27.0-34.0); MEAN CORPUSCULAR HGB CONC 34.8 % (32.0-36.0); MONO % 11.3 % (0.0-8.0); NEUT % 53.1 % (16.0-70.0); PLATELET COUNT 292 TH/MM3 (150-450); RED BLOOD COUNT 4.51 MIL/MM3 (4.50-5.90); RED CELL DISTRIBUTION WIDTH 13.2 % (11.6-17.2); WHITE BLOOD COUNT 9.2 TH/MM3 (4.0-11.0)
--- NOTE | 2017-02-15 12:09 | RADRPT ---
EXAM DATE/TIME: 02/15/2017 11:35 [facility] COMPARISON: No previous studies available for comparison. INDICATIONS : Right elbow pain, no injury. MEDICAL HISTORY : Diabetes mellitus type II. SURGICAL HISTORY : None. ENCOUNTER: Initial ACUITY: 1 week PAIN SCORE: 10/10 LOCATION: Right lateral elbow FINDINGS: Two-view examination of the elbow demonstrates the osseous structures in normal alignment without arron dence of fracture or dislocation. There is prominence of soft tissue swelling about the olecranon re gion measuring up to 3 cm. No radiopaque foreign bodies and no focal collections of gas. CONCLUSION: 1. Prominent localized soft tissue thickening about the olecranon. 2. Osseous structures are intact. Agustin Mendoza MD on February 15, 2017 at 12:07 Board Certified Radiologist. This report was verified electronically.
[2017-02-15 12:20] LABS: APTT (PATIENT) 29.5 SEC (24.3-30.1); INTERNATIONAL NORMALIZED RATIO 0.9 RATIO; PROTHROMBIN TIME - PATIENT 10.4 SEC (9.8-11.6)
[2017-02-15 12:28] LABS: ANION GAP 6 MEQ/L (5-15); AST (GOT) 55 U/L (15-37); BICARBONATE 24.8 MEQ/L (21.0-32.0); BLOOD UREA NITROGEN 12 MG/DL (7-18); CHLORIDE 105 MEQ/L (98-107); GLOMERULAR FILTRATION RATE 83 ML/MIN (>89); POTASSIUM 4.5 MEQ/L (3.5-5.1); SODIUM (NA) 136 MEQ/L (136-145)
[2017-02-15 12:30] LABS: ALT (GPT) 45 U/L (12-78)
[2017-02-15 12:32] LABS: ALKALINE PHOSPHATASE 86 U/L (45-117); TOTAL BILIRUBIN ADULT 0.3 MG/DL (0.2-1.0)
[2017-02-15] MEDS ORDERED: SENNOSIDES 8.6 MG TAB PO PRN (13:15)
[2017-02-15] MEDS ORDERED: LACTULOSE SYRUP 20 GM/30 ML CUP PO PRN (13:15)
[2017-02-15] MEDS ORDERED: BISACODYL 10 MG SUPP RECTAL PRN (13:15)
[2017-02-15] MEDS ORDERED: MORPHINE SULFATE 4 MG/ML INJ IV PUSH PRN (13:15)
[2017-02-15] MEDS ORDERED: ONDANSETRON HCL 4 MG/2 ML VIAL IVP PRN (13:15)
[2017-02-15] MEDS ORDERED: SODIUM CHLORIDE 0.9% FLUSH 10 ML FLUSH IV FLUSH PRN (13:15)
[2017-02-15] MEDS ORDERED: MAGNESIUM HYDROXIDE SUSP 30 ML CUP PO PRN (13:15)
[2017-02-15] MEDS ORDERED: DEXTROSE 50% IN WATER 50 ML VIAL(D50) IV PUSH PRN (13:15)
[2017-02-15] MEDS ORDERED: ACETAMINOPHEN 325 MG TAB PO PRN ×2 (13:15)
[2017-02-15] MEDS ORDERED: GLUCAGON 1 MG/ML VIAL OTHER PRN (13:15)
[2017-02-15] MEDS ORDERED: Vancomycin Consult Pharmacy 1 EA OTHER SCH (13:15)
[2017-02-15] MEDS ORDERED: NALOXONE HCL 0.4 MG/ML AMP IV PUSH PRN (13:15)
[2017-02-15] MEDS ORDERED: PROCHLORPERAZINE 25 MG SUPP RECTAL PRN (13:15)
[2017-02-15 13:29] VITALS: O2SAT 97
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
[2017-02-15] MEDS ORDERED: FLUMAZENIL 0.5 MG/5 ML VIAL IV PUSH PRN (14:15)
[2017-02-15] MEDS ORDERED: HALOPERIDOL LACTATE 5 MG/ML AMP IM PRN (14:15)
[2017-02-15] MEDS ORDERED: LORazepam 2 MG/ML VIAL IV PUSH PRN ×4 (14:15)
[2017-02-15] MEDS ORDERED: LORazepam 2 MG TAB PO PRN (14:15)
[2017-02-15] MEDS ORDERED: cloNIDine HCL 0.1 MG TAB PO PRN (14:15)
[2017-02-15] MEDS ORDERED: LORazepam 1 MG TAB PO PRN (14:15)
[2017-02-15] MEDS: SODIUM CHLOR 0.9% 1000 ML INJ 1,000 ML IV SCH ×2 (14:35→23:04)
[2017-02-15 15:00] VITALS: BP 139/79; PULSE 80; RESP 16; O2SAT 97
[2017-02-15] MEDS: ENOXAPARIN SODIUM 40 MG/0.4 ML SYRINGE SQ SCH (15:00)
[2017-02-15] MEDS ORDERED: NICOTINE 21 MG/24 HR PATCH T-DERMAL ONE (15:00)
[2017-02-15] MEDS: FOLIC ACID 1 MG TAB PO SCH (15:12)
[2017-02-15] MEDS: MULTIVITAMIN TAB PO SCH (15:12)
[2017-02-15] MEDS: THIAMINE HCL 100 MG TAB PO SCH (15:13)
[2017-02-15] MEDS: PANTOPRAZOLE SOD 40 MG DELAYED RELEASE TAB PO SCH (15:13)
[2017-02-15] MEDS: oxyCODONE/ACETAMINOPHEN 10 MG/325 MG TAB PO PRN (15:17)
[2017-02-15] MEDS: CEFEPIME INJ 1,000 MG in SODIUM CHLORIDE 0.9% INJ 100 ML IV SCH ×2 (15:19→23:03)
[2017-02-15 16:00] VITALS: BP 145/83; PULSE 72; RESP 18; TEMP 97.5; O2SAT 96
--- NOTE | 2017-02-15 16:26 | PD.WCN.NOT ---
Wound Consult Description: Consult for wound management of right elbow per Dr Shultz Communicated with: AJAY Del Toro Dr Recommendation: Remove packing of Maxorb II (may moisten with NS to remove) Every Other Day and PRN for soiling or dislodgement. Cleanse with NS and gauze. Cut Calcium Alginate into strip form and gently pack wound to right elbow leaving a tail for easier removal. Cover with Optifoam Basic and secure with rolled gauze and CELINA wrap for reinforcement (not a pressure dressing) Additional Information: Patient seen on for right elbow wound post I&D in ER with plain packing strip. Dressing of rolled gauze, 4x4, and plain packing strip removed to reveal a pocket of blood overlying the elbow measuring 0.9cm x 0.9cm x 1.7cm with undermining noted circumferentially of 1.7cm. Wound was repacked using Maxorb II (Calcium Alginate) and covered with an Optifoam basic that may remain in place for 2 days unless soiled or dislodged. Rolled gauze and CELINA wrap was applied for securing dressing. Gisselle Arroyo [facility] Feb 15, 2017 16:26
[2017-02-15] MEDS: INSULIN ASPART SUPPLEMENTAL SCALE SQ SCH ×2 (17:00→21:00)
[2017-02-15 20:00] VITALS: BP 134/79; PULSE 84; RESP 18; TEMP 97.6; O2SAT 95
[2017-02-15] MEDS: DOCUSATE SODIUM 50 MG/SENNA 8.6 MG TAB PO SCH (20:02)
[2017-02-15] MEDS: SODIUM CHLORIDE 0.9% FLUSH 10 ML FLUSH IV FLUSH SCH (20:02)
[2017-02-15] MEDS: VANCOMYCIN INJ 1,250 MG in SODIUM CHLOR 0.9% 250 ML INJ 250 ML IV SCH (21:38)
[2017-02-15] MEDS: oxyCODONE/ACETAMINOPHEN 5 MG/325 MG TAB PO PRN (21:38)
[2017-02-16] VITALS (8 sets, daily range): BP systolic 110–138; BP diastolic 69–78; PULSE 76–86; RESP 15–20; TEMP 96.8–98.8; O2SAT 93–97
[2017-02-16] MEDS: oxyCODONE/ACETAMINOPHEN 5 MG/325 MG TAB PO PRN (05:24)
[2017-02-16 06:57] LABS: BASOPHIL % 0.5 % (0.0-2.0); EOSINOPHIL # 0.2 TH/MM3 (0-0.4); EOSINOPHIL % 3.1 % (0.0-4.0); HEMATOCRIT 39.2 % (39.0-51.0); HEMO FLAGS DIFF FINAL; LYMPH % 31.1 % (9.0-44.0); LYMPHOCYTE # 2.1 TH/MM3 (1.0-4.8); MEAN CELL VOLUME 89.8 FL (80.0-100.0); MEAN CORPUSCULAR HEMOGLOBIN 30.8 PG (27.0-34.0); MEAN CORPUSCULAR HGB CONC 34.3 % (32.0-36.0); MONO % 6.4 % (0.0-8.0); NEUT % 58.9 % (16.0-70.0); PLATELET COUNT 298 TH/MM3 (150-450); RED BLOOD COUNT 4.36 MIL/MM3 (4.50-5.90); RED CELL DISTRIBUTION WIDTH 12.9 % (11.6-17.2); WHITE BLOOD COUNT 6.8 TH/MM3 (4.0-11.0)
[2017-02-16 07:04] LABS: ANION GAP 5 MEQ/L (5-15); AST (GOT) 50 U/L (15-37); BICARBONATE 27.1 MEQ/L (21.0-32.0); CHLORIDE 104 MEQ/L (98-107); GLOMERULAR FILTRATION RATE 88 ML/MIN (>89); MAGNESIUM 1.9 MG/DL (1.5-2.5); POTASSIUM 4.1 MEQ/L (3.5-5.1); SODIUM (NA) 136 MEQ/L (136-145)
[2017-02-16 07:13] LABS: ALKALINE PHOSPHATASE 78 U/L (45-117); ALT (GPT) 40 U/L (12-78); BLOOD UREA NITROGEN 9 MG/DL (7-18); TOTAL BILIRUBIN ADULT 0.6 MG/DL (0.2-1.0)
[2017-02-16] MEDS: PANTOPRAZOLE SOD 40 MG DELAYED RELEASE TAB PO SCH (07:53)
[2017-02-16] MEDS: FOLIC ACID 1 MG TAB PO SCH (07:53)
[2017-02-16] MEDS: REMOVE OLD PATCH T-DERMAL SCH (07:54)
[2017-02-16] MEDS: NICOTINE 21 MG/24 HR PATCH T-DERMAL SCH (07:54)
[2017-02-16] MEDS: MULTIVITAMIN TAB PO SCH (07:54)
[2017-02-16] MEDS: DOCUSATE SODIUM 50 MG/SENNA 8.6 MG TAB PO SCH ×2 (07:54→19:54)
[2017-02-16] MEDS: THIAMINE HCL 100 MG TAB PO SCH (07:54)
[2017-02-16] MEDS: INSULIN ASPART SUPPLEMENTAL SCALE SQ SCH ×4 (07:55→19:54)
[2017-02-16] MEDS: CEFEPIME INJ 1,000 MG in SODIUM CHLORIDE 0.9% INJ 100 ML IV SCH ×2 (07:55→14:31)
[2017-02-16] MEDS: SODIUM CHLORIDE 0.9% FLUSH 10 ML FLUSH IV FLUSH SCH ×2 (07:55→19:53)
[2017-02-16] MEDS: VANCOMYCIN INJ 1,250 MG in SODIUM CHLOR 0.9% 250 ML INJ 250 ML IV SCH ×2 (10:01→20:36)
[2017-02-16] MEDS: SODIUM CHLOR 0.9% 1000 ML INJ 1,000 ML IV SCH (10:02)
[2017-02-16] MEDS: oxyCODONE/ACETAMINOPHEN 10 MG/325 MG TAB PO PRN ×2 (14:30→20:36)
[2017-02-16] MEDS: ENOXAPARIN SODIUM 40 MG/0.4 ML SYRINGE SQ SCH (14:30)
--- NOTE | 2017-02-16 16:53 | HHI.PR ---
Subjective Remarks Wound cultures pending. Patient doing well after drainage of his right elbow wound. No new complaints today. Objective Vital Signs Date Time Temp Pulse Resp B/P (MAP) Pulse Ox O2 Delivery O2 Flow Rate FiO2 02/16/17 12:00 96.8 77 15 110/70 (83) 94 02/16/17 09:35 21 02/16/17 08:00 98.8 78 16 135/78 (97) 95 02/16/17 04:00 98.4 76 20 138/69 (92) 95 02/16/17 00:00 98.5 86 20 137/75 (95) 95 02/15/17 22:38 18 02/15/17 20:00 97.6 84 18 134/79 (97) 95 I/O 02/15/17 02/15/17 02/15/17 02/16/17 02/16/17 02/16/17 07:00 15:00 23:00 07:00 15:00 23:00 Intake Total 480 ml 480 ml 1361.5 ml 100 ml Output Total 200 ml Balance 280 ml 480 ml 1361.5 ml 100 ml Intake Oral 480 ml 480 ml IV Total 1361.5 ml 100 ml Output Urine Total 200 ml # Voids 1 # Bowel Movements 0 1 Result Diagram: 02/16/17 0541 02/16/17 0541 Objective Remarks GENERAL: NAD, A&Ox3 HEAD: Normocephalic. NECK: Supple, trachea midline. No lymphadenopathy. EYES: No scleral icterus. No injection or drainage. CARDIOVASCULAR: Regular rate and rhythm without murmurs, gallops, or rubs. RESPIRATORY: Breath sounds equal bilaterally. No accessory muscle use. GASTROINTESTINAL: Abdomen soft, non-tender, nondistended. MUSCULOSKELETAL: No cyanosis, or edema. Right elbow is bandaged. SKIN: Warm and dry. NEURO: No focal neurological deficitis. A/P Problem List: (1) Olecranon bursitis, right elbow ICD Code: M70.21 - Olecranon bursitis, right elbow Status: Acute (2) Cellulitis of right elbow ICD Code: L03.113 - Cellulitis of right upper limb Status: Acute Assessment and Plan Assessment and Plan 52-year-old male admitted secondary to right elbow infection Right arm/elbow cellulitis Continue vancomycin Continue cefepime Follow cultures As needed pain control Nicotine dependence NicoDerm Hyperglycemia Resolved Likely reaction to infection No evidence of diabetes Hypertension Resolved Patient denies any prior history of hypertension Elevation in blood pressure may be related to previous pain Bipolar disorder Stable Follow clinically Consult psych if needed DVT prophylaxis Moiz Tripathi MD Feb 16, 2017 16:53
[2017-02-17] MEDS: CEFEPIME INJ 1,000 MG in SODIUM CHLORIDE 0.9% INJ 100 ML IV SCH ×4 (00:44→23:53)
[2017-02-17] MEDS: oxyCODONE/ACETAMINOPHEN 10 MG/325 MG TAB PO PRN ×5 (00:50→23:54)
[2017-02-17 08:00] VITALS: BP 127/70; PULSE 67; RESP 16; TEMP 96.7; O2SAT 95
[2017-02-17] MEDS: INSULIN ASPART SUPPLEMENTAL SCALE SQ SCH ×4 (08:00→19:40)
[2017-02-17] MEDS: NICOTINE 21 MG/24 HR PATCH T-DERMAL SCH (08:36)
[2017-02-17] MEDS: MULTIVITAMIN TAB PO SCH (08:37)
[2017-02-17] MEDS: SODIUM CHLORIDE 0.9% FLUSH 10 ML FLUSH IV FLUSH SCH ×2 (08:37→19:40)
[2017-02-17] MEDS: REMOVE OLD PATCH T-DERMAL SCH (08:37)
[2017-02-17] MEDS: DOCUSATE SODIUM 50 MG/SENNA 8.6 MG TAB PO SCH ×2 (08:37→19:40)
[2017-02-17] MEDS: FOLIC ACID 1 MG TAB PO SCH (08:37)
[2017-02-17] MEDS: PANTOPRAZOLE SOD 40 MG DELAYED RELEASE TAB PO SCH (08:37)
[2017-02-17] MEDS: THIAMINE HCL 100 MG TAB PO SCH (08:37)
[2017-02-17] MEDS: VANCOMYCIN INJ 1,250 MG in SODIUM CHLOR 0.9% 250 ML INJ 250 ML IV SCH ×2 (09:20→22:13)
[2017-02-17] MEDS ORDERED: PHARMACY ORDERED LAB ONE (09:45)
[2017-02-17 12:00] VITALS: BP 129/69; PULSE 69; RESP 17; TEMP 96.9; O2SAT 97
[2017-02-17 14:09] LABS: HEMOGLOBIN A1a 1.1 %; HEMOGLOBIN A1b 1.5 %; HEMOGLOBIN Ao 86.4 %; HEMOGLOBIN P3 3.4 %
[2017-02-17] MEDS: ENOXAPARIN SODIUM 40 MG/0.4 ML SYRINGE SQ SCH (14:55)
--- NOTE | 2017-02-17 15:26 | HHI.PR ---
Subjective Remarks Plans for discharge discussed with the patient. He says he is not able to do his own dressing changes. Regarding options for home health, patient says that his living situation is not reliable. He is homeless. He will frequently stay in somebody's [place] room just at nighttime but during the day he is not at that place (he avoids it because the family of the elderly woman who provides him prison does not want him there). Objective Vital Signs Date Time Temp Pulse Resp B/P (MAP) Pulse Ox O2 Delivery O2 Flow Rate FiO2 02/17/17 12:00 96.9 69 17 129/69 (89) 97 02/17/17 08:00 96.7 67 16 127/70 (89) 95 02/16/17 23:26 96.8 79 18 131/72 (91) 93 02/16/17 21:32 97 02/16/17 20:01 97.3 80 18 127/78 (94) 97 02/16/17 16:00 96.8 76 18 127/75 (92) 97 I/O 02/16/17 02/16/17 02/16/17 02/17/17 02/17/17 02/17/17 07:00 15:00 23:00 07:00 15:00 23:00 Intake Total 480 ml 1361.5 ml 1084.5 ml 860 ml 362.5 ml Balance 480 ml 1361.5 ml 1084.5 ml 860 ml 362.5 ml Intake Oral 480 ml 760 ml IV Total 1361.5 ml 1084.5 ml 100 ml 362.5 ml # Voids 1 4 # Bowel Movements 1 Result Diagram: 02/16/17 0541 02/16/17 0541 Objective Remarks GENERAL: NAD, A&Ox3 HEAD: Normocephalic. NECK: Supple, trachea midline. No lymphadenopathy. EYES: No scleral icterus. No injection or drainage. CARDIOVASCULAR: Regular rate and rhythm without murmurs, gallops, or rubs. RESPIRATORY: Breath sounds equal bilaterally. No accessory muscle use. GASTROINTESTINAL: Abdomen soft, non-tender, nondistended. MUSCULOSKELETAL: No cyanosis, or edema. Right elbow is bandaged. SKIN: Warm and dry. NEURO: No focal neurological deficitis. A/P Problem List: (1) Olecranon bursitis, right elbow ICD Code: M70.21 - Olecranon bursitis, right elbow Status: Acute (2) Cellulitis of right elbow ICD Code: L03.113 - Cellulitis of right upper limb Status: Acute Assessment and Plan Assessment and Plan 52-year-old male admitted secondary to right elbow infection. Arrangements for safe discharge and process. He will need somebody to assist his dressing changes as long as packing is needed. Currently he has no friends or family members could assist him. He states he has [place] apartment placement pending. Currently no reliable housing situation. Right arm/elbow cellulitis Continue vancomycin Continue cefepime Follow cultures As needed pain control Nicotine dependence NicoDerm Hyperglycemia Resolved Likely reaction to infection No evidence of diabetes Hypertension Resolved Patient denies any prior history of hypertension Elevation in blood pressure may be related to previous pain Bipolar disorder Stable Follow clinically Consult psych if needed DVT prophylaxis Moiz Tripathi MD Feb 17, 2017 15:26
[2017-02-17 16:00] VITALS: BP 125/69; PULSE 64; RESP 17; TEMP 97.3; O2SAT 96
[2017-02-17 20:27] VITALS: BP 123/82; PULSE 80; RESP 17; TEMP 97.3; O2SAT 96
[2017-02-17 23:46] VITALS: BP 136/76; PULSE 80; RESP 18; TEMP 97.8; O2SAT 98
[2017-02-18] MEDS: oxyCODONE/ACETAMINOPHEN 10 MG/325 MG TAB PO PRN ×3 (06:06→23:59)
[2017-02-18] MEDS: INSULIN ASPART SUPPLEMENTAL SCALE SQ SCH ×4 (07:24→21:00)
[2017-02-18 08:00] VITALS: BP 124/72; PULSE 69; RESP 20; TEMP 96.9; O2SAT 95
[2017-02-18] MEDS: REMOVE OLD PATCH T-DERMAL SCH (08:26)
[2017-02-18] MEDS: NICOTINE 21 MG/24 HR PATCH T-DERMAL SCH (08:26)
[2017-02-18] MEDS: THIAMINE HCL 100 MG TAB PO SCH (08:26)
[2017-02-18] MEDS: DOCUSATE SODIUM 50 MG/SENNA 8.6 MG TAB PO SCH ×2 (08:27→19:51)
[2017-02-18] MEDS: SODIUM CHLORIDE 0.9% FLUSH 10 ML FLUSH IV FLUSH SCH ×2 (08:27→19:51)
[2017-02-18] MEDS: CEFEPIME INJ 1,000 MG in SODIUM CHLORIDE 0.9% INJ 100 ML IV SCH (08:27)
[2017-02-18] MEDS: PANTOPRAZOLE SOD 40 MG DELAYED RELEASE TAB PO SCH (08:27)
[2017-02-18] MEDS: MULTIVITAMIN TAB PO SCH (08:27)
[2017-02-18] MEDS: FOLIC ACID 1 MG TAB PO SCH (08:27)
[2017-02-18] MEDS: VANCOMYCIN INJ 1,250 MG in SODIUM CHLOR 0.9% 250 ML INJ 250 ML IV SCH (09:11)
[2017-02-18 12:00] VITALS: BP 129/84; PULSE 76; RESP 18; TEMP 96.4; O2SAT 95
[2017-02-18 15:57] VITALS: BP 146/93; PULSE 83; RESP 18; TEMP 96.2; O2SAT 99
[2017-02-18] MEDS: CLINDAMYCIN INJ 900 MG in SODIUM CHLORIDE 0.9% INJ 100 ML IV SCH ×2 (16:29→23:59)
[2017-02-18] MEDS: LACTOBACILLUS ACIDOPHILUS TAB PO SCH (16:29)
[2017-02-18] MEDS: ENOXAPARIN SODIUM 40 MG/0.4 ML SYRINGE SQ SCH (16:30)
--- NOTE | 2017-02-18 17:36 | HHI.PR ---
Subjective Remarks Resting comfortably in bed No event overnight Denied chest and or short of breath No fever or chills Objective Vitals Vital Signs Date Time Temp Pulse Resp B/P (MAP) Pulse Ox O2 Delivery O2 Flow Rate FiO2 02/18/17 15:57 96.2 83 18 146/93 (110) 99 02/18/17 12:00 96.4 76 18 129/84 (99) 95 02/18/17 08:00 96.9 69 20 124/72 (89) 95 02/17/17 23:46 97.8 80 18 136/76 (96) 98 02/17/17 20:27 97.3 80 17 123/82 (96) 96 I/O 02/17/17 02/17/17 02/17/17 02/18/17 02/18/17 02/18/17 07:00 15:00 23:00 07:00 15:00 23:00 Intake Total 860 ml 362.5 ml 100 ml 1142.5 ml 100 ml 2385.5 ml Balance 860 ml 362.5 ml 100 ml 1142.5 ml 100 ml 2385.5 ml Intake Oral 760 ml 780 ml IV Total 100 ml 362.5 ml 100 ml 362.5 ml 100 ml 2385.5 ml # Voids 4 5 Result Diagram: 02/16/1754002/16/17540 Objective Remarks GENERAL: This is a well-nourished, well-developed patient, in no apparent distress. SKIN: No rashes, warm and dry HEAD: Atraumatic. Normocephalic. EYES: Pupils equal round and reactive. Extraocular motions intact. No scleral icterus. ENT: Nose without bleeding, or drainage, Airway patent. NECK: Trachea midline. Supple CARDIOVASCULAR: Regular rate and rhythm without murmurs, gallops, or rubs. RESPIRATORY: Fair air entry bilaterally. No wheezes, rales, or rhonchi. GASTROINTESTINAL: Abdomen soft, non-tender, nondistended. Positive bowel sounds MUSCULOSKELETAL: Extremities without clubbing, cyanosis, or edema. Pedal pulses appreciated right elbow in gauze NEUROLOGICAL: Awake and alert. Moves all extremity. Normal speech.no focal neurological deficit A/P Problem List: (1) Hepatitis C antibody positive in blood ICD Code: R76.8 - Other specified abnormal immunological findings in serum Status: Acute (2) DM (diabetes mellitus) ICD Code: E11.9 - Type 2 diabetes mellitus without complications Status: Chronic (3) Tobacco abuse ICD Code: Z72.0 - Tobacco use (4) Marijuana abuse ICD Code: F12.10 - Cannabis abuse, uncomplicated (5) Cocaine abuse ICD Code: F14.10 - Cocaine abuse, uncomplicated (6) Cellulitis of right elbow ICD Code: L03.113 - Cellulitis of right upper limb Status: Acute (7) Olecranon bursitis, right elbow ICD Code: M70.21 - Olecranon bursitis, right elbow Status: Acute (8) Hypertension ICD Code: I10 - Essential (primary) hypertension Status: Chronic Assessment and Plan Right elbow cellulitis/abscess: Status post I&D, culture showing MRSA, status post Vanco, sensitive to clindamycin, switch to clindamycin iv, monitor overnight for fever, follow CBC, wound care Bipolar disorder, hypertension: Continue home meds DVT prophylaxis with ambulation and Lovenox Lilliana Beverly MD Feb 18, 2017 17:36
[2017-02-18] MEDS: MORPHINE SULFATE 4 MG/ML INJ IV PUSH PRN (19:51)
[2017-02-18 20:00] VITALS: BP 122/76; PULSE 82; RESP 18; TEMP 97; O2SAT 94
[2017-02-19] VITALS: BP 99/52; PULSE 78; RESP 18; TEMP 96.9; O2SAT 95
[2017-02-19] MEDS: MORPHINE SULFATE 4 MG/ML INJ IV PUSH PRN ×2 (01:01→06:18)
[2017-02-19] MEDS: CLINDAMYCIN INJ 900 MG in SODIUM CHLORIDE 0.9% INJ 100 ML IV SCH ×2 (05:29→12:41)
[2017-02-19] MEDS: oxyCODONE/ACETAMINOPHEN 10 MG/325 MG TAB PO PRN ×2 (05:30→12:42)
[2017-02-19] MEDS ORDERED: MORPHINE SULFATE 2 MG/ML INJ IV ONE (06:45)
[2017-02-19 08:00] VITALS: BP 111/69; PULSE 61; RESP 14; TEMP 97.8; O2SAT 93
[2017-02-19] MEDS: INSULIN ASPART SUPPLEMENTAL SCALE SQ SCH ×2 (08:00→12:00)
[2017-02-19] MEDS: REMOVE OLD PATCH T-DERMAL SCH (09:00)
[2017-02-19] MEDS: MULTIVITAMIN TAB PO SCH (09:08)
[2017-02-19] MEDS: NICOTINE 21 MG/24 HR PATCH T-DERMAL SCH (09:08)
[2017-02-19] MEDS: FOLIC ACID 1 MG TAB PO SCH (09:08)
[2017-02-19] MEDS: THIAMINE HCL 100 MG TAB PO SCH (09:08)
[2017-02-19] MEDS: DOCUSATE SODIUM 50 MG/SENNA 8.6 MG TAB PO SCH (09:08)
[2017-02-19] MEDS: PANTOPRAZOLE SOD 40 MG DELAYED RELEASE TAB PO SCH (09:08)
[2017-02-19] MEDS: LACTOBACILLUS ACIDOPHILUS TAB PO SCH ×2 (09:08→12:41)
[2017-02-19 12:00] VITALS: BP 115/69; PULSE 80; RESP 16; TEMP 97.5; O2SAT 93
[2017-02-19] MEDS: SODIUM CHLORIDE 0.9% FLUSH 10 ML FLUSH IV FLUSH SCH (12:42)
[2017-02-19] MEDS ORDERED: CLIN1CAP6 PO (14:30)
[2017-02-19] MEDS ORDERED: LACT PO (14:31)
--- NOTE | 2017-02-19 14:34 | HHI.FF ---
Face to Face Verification Diagnosis: (1) Cellulitis of right elbow Home Health Nursing Order: Wound care and dressing changes Nursing assessment with vital signs I have seen patient Evan Oropeza on 02/19/17. My clinical findings support the need for the requested home health care services because: Limited ability to care for self I certify that my clinical findings support that this patient is homebound because: Unsafe to leave home unassisted (compliance is a concern and the wound need professional packing to avoid reinfection) Lilliana Beverly MD Feb 19, 2017 14:34
[2017-02-19] MEDS: ENOXAPARIN SODIUM 40 MG/0.4 ML SYRINGE SQ SCH (14:39)
--- NOTE | 2017-02-19 14:48 | HHI.DS ---
Discharge Summary Admission Date Feb 15, 2017 at 13:04 Discharge Date: Feb 19, 2017 Admitting Diagnosis right elbow cellulitis. Olecranon bursitis (1) Hepatitis C antibody positive in blood ICD Code: R76.8 - Other specified abnormal immunological findings in serum Status: Acute (2) DM (diabetes mellitus) ICD Code: E11.9 - Type 2 diabetes mellitus without complications Status: Chronic (3) Tobacco abuse ICD Code: Z72.0 - Tobacco use (4) Marijuana abuse ICD Code: F12.10 - Cannabis abuse, uncomplicated (5) Cocaine abuse ICD Code: F14.10 - Cocaine abuse, uncomplicated (6) Cellulitis of right elbow ICD Code: L03.113 - Cellulitis of right upper limb Status: Acute (7) Olecranon bursitis, right elbow ICD Code: M70.21 - Olecranon bursitis, right elbow Status: Acute (8) Hypertension ICD Code: I10 - Essential (primary) hypertension Status: Chronic Procedures I&D right elbow Brief History - From Admission Patient is a 52-year-old male, Who presents to the emergency department complaining of pain and swelling and redness of the right elbow. Patient states that he started having pain and swelling of the right elbow about 2 weeks ago. Patient was seen in the emergency room 5 days ago. Had an incision and drainage done of the right elbow. Patient was given prescription for hydrocodone and Bactrim DS. Patient has been taking the medication as directed. Patient states that he has increasing pain and swelling and redness of the right elbow. Patient states that he has had fevers since yesterday. Patient denies any headache. Patient denies any chest pain or shortness of breath. Patient denies any abdominal pain denies any other injury. Patient states he smokes 2-1/2 packs of cigarettes a day. Does some marijuana and some cocaine also denies any illicit IV drug use CBC/BMP: 02/16/17 0541 02/16/17 0541 Significant Findings Laboratory Tests Test 02/17/17 08:52 Vancomycin Level Trough 12.3 MCG/ML (5.0-10.0) PE at Discharge GENERAL: This is a well-nourished, well-developed patient, in no apparent distress. SKIN: No rashes, warm and dry HEAD: Atraumatic. Normocephalic. EYES: Pupils equal round and reactive. Extraocular motions intact. No scleral icterus. ENT: Nose without bleeding, or drainage, Airway patent. NECK: Trachea midline. Supple CARDIOVASCULAR: Regular rate and rhythm without murmurs, gallops, or rubs. RESPIRATORY: Fair air entry bilaterally. No wheezes, rales, or rhonchi. GASTROINTESTINAL: Abdomen soft, non-tender, nondistended. Positive bowel sounds MUSCULOSKELETAL: Extremities without clubbing, cyanosis, or edema. Pedal pulses appreciated right elbow in gauze NEUROLOGICAL: Awake and alert. Moves all extremity. Normal speech.no focal neurological deficit Hospital Course Right elbow cellulitis/abscess: Status post I&D, culture showing MRSA, status post Vanco, sensitive to clindamycin, switch to clindamycin iv name by mouth at discharge, no overnight fever, patient insisted on leaving hospital today, I discussed extensively with the nurse the patient and the case management there will be nurses seeing the patient every other day to change the dressing [id number] encounter performed with the patient on discharge day, as well as physical exam, summary of hospitalization course and postdischarge plan has been D/W the patient. D/W nurse D/W pillowcase cutter. Discharge medications reviewed and printed and signed, post discharge follow up visit with PCP and other specialist as well as Brief hospital course and discharge summary has been placed. Pt Condition on Discharge: Good Discharge Disposition: Discharge Home Discharge Time: > 30 minutes Discharge Instructions DIET: Follow Instructions for: Heart Healthy Diet Activities you can perform: Weight Bearing as Eder Follow up Referrals: PCP Follow-up - 3-5 Days New Medications: Clindamycin (Clindamycin) 300 Mg Cap 300 MG PO Q6H for Infection for 14 Days, #56 CAP 0 Refills Lactobacillus Acidophilus (Acidophilus/l-Sporogenes) 35 Million Cell-25 Million Cell Tab 1 TAB PO TID for probiotic, #30 TAB Lilliana Beverly MD Feb 19, 2017 14:48
== END 2017-02-19 16:30 | disposition home or self-care (01) | DRG 558 ==
LOC: NEPD 10:27 → NEDA 13:04 → N07A 15:05 → UNDODISIN 02-19 14:18
PROVIDERS: ADMIT Hospitalist; ATTEND Hospitalist
PROC: 0H9DXZZ Drainage of Right Lower Arm Skin, External Approach (ICD-10-PCS; principal; 2017-02-15)
DX: M71.021 Abscess of bursa, right elbow (principal); E11.65 Type 2 diabetes mellitus with hyperglycemia; I10 Essential (primary) hypertension; L03.113 Cellulitis of right upper limb; R76.8 Other specified abnormal immunological findings in serum; F12.10 Cannabis abuse, uncomplicated; F14.10 Cocaine abuse, uncomplicated; F17.210 Nicotine dependence, cigarettes, uncomplicated; F31.9 Bipolar disorder, unspecified; F41.9 Anxiety disorder, unspecified; B95.62 Methicillin resistant Staphylococcus aureus infection as the cause of diseases classified elsewhere; Z59.0 Homelessness; Z85.6 Personal history of leukemia; Z88.0 Allergy status to penicillin
CPT/HCPCS: 10061; 71010; 73070; 80053; 80202; 82948; 83036; 83735; 84100; 84439; 84443; 85025; 85610; 85730; 86403; 87040; 87070; 87147; 87186; 87205; 96365; 96375; 96376; J0692; J1650; J2270; J2405; J3370; J7030; J7050